=== PATIENT | female | born 2000 | race Caucasian/White ===

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

== ENCOUNTER 2020-03-30 15:11 | Emergency (ER) | payer OTHER ==
--- NOTE | 2020-03-30 16:17 | XR ---
EXAMINATION TYPE: XR chest 2V DATE OF EXAM: 03/30/2020 COMPARISON: 12/11/2018 HISTORY: 19-year-old female with cough TECHNIQUE: PA and lateral views FINDINGS: The cardiomediastinal silhouette, aorta, and pulmonary vasculature are within normal limits. Lungs an d pleural spaces are clear. Bilateral nipple bars. IMPRESSION: No acute cardiopulmonary process.
--- NOTE | 2020-03-30 16:35 | ED ---
URI HPI - General Chief Complaint: Upper Respiratory Infection Stated Complaint: Cough/NESHA Time Seen by Provider: 03/30/20 15:44 Source: family Mode of arrival: ambulatory Limitations: no limitations - History of Present Illness Initial Comments: 19-year-old female who denies past medical history presenting today for chief complaint of cough, sore throat. Patient states that she has had a cough and sore throat for the past 1-2 days she states she's felt warm as though she's had a fever. Patient denies any specific sick contacts denies abdominal pain rashes diarrhea. Patient states that she feels short of breath coughing denies shortness breath and absence of coughing. Denies a chest pressure arm pain and jaw pain and leg swelling. Denies SARKAR, neck stiffness, abdominal pain or urinary symptoms. Patient denies additional complaints upon arrival she appears well nontoxic in no acute distress - Related Data Home Medications Medication Instructions Recorded Confirmed FLUoxetine HCL [PROzac] 40 mg PO HS 01/12/16 03/30/20 cloNIDine HCL [Catapres] 0.1 mg PO HS 03/30/20 03/30/20 Previous Rx's Medication Instructions Recorded predniSONE 50 mg PO DAILY 4 Days #4 tab 03/30/20 Allergies Allergy/AdvReac Type Severity Reaction Status Date / Time No Known Allergies Allergy Verified 03/30/20 16:39 Review of Systems ROS Statement: Those systems with pertinent positive or pertinent negative responses have been documented in the HPI. ROS Other: All systems not noted in ROS Statement are negative. Past Medical History Past Medical History: No Reported History History of Any Multi-Drug Resistant Organisms: None Reported Past Surgical History: Ear Surgery Additional Past Surgical History / Comment(s): oral surgery Past Psychological History: ADD/ADHD, Anxiety Smoking Status: Current every day smoker Past Alcohol Use History: Occasional Past Drug Use History: None Reported General Exam - General Exam Comments Initial Comments: General: The patient is awake and alert, in no distress, and does not appear acutely ill. Eye: +3 mm pupils are equal, round and reactive to light, extra-ocular movements are intact. No nystagmus. There is normal conjunctiva bilaterally. No signs of icterus. No photophobia Ears, nose, mouth and throat: There are moist mucous membranes and no oral lesions. Oropharynx was not erythematous there is no tonsillar enlargement exudates or lesions. Uvula midline. Tympanic membranes are not erythematous or is no effusions bulging or retraction. No tenderness to palpation of the mastoid. No anterior cervical lymphadenopathy. Rhinorrhea, clear and bilateral nares. No tripoding, no drooling. Neck: The neck is supple, there is no tenderness or JVD. No nuchal rigidity Cardiovascular: There is a regular rate and rhythm. No murmur, rub or gallop is appreciated. Respiratory: Lungs are clear to auscultation, respirations are non-labored, breath sounds are equal. No wheezes, stridor, rales, or rhonchi. No retr actions or abdominal breathing. Gastrointestinal: Soft, non-distended, non-tender abdomen without masses or organomegaly noted. There is no rebound or guarding present. Bowel sounds are unremarkable. Musculoskeletal: Normal ROM, no tenderness. Strength 5/5. Sensation intact. Radial pulses equal bilaterally 2+. Neurological: A&O x 3. CN II-XII intact grossly, There are no obvious motor or sensory deficits. Coordination appears grossly intact. Speech appears normal, no muffling. Skin: Skin is warm and dry and no rashes or lesions are noted. No extremity edema Psychiatric: Cooperative Limitations: no limitations Course Vital Signs 03/30/20 03/30/20 15:32 16:37 Temperature 98.5 F 97.8 F Pulse Rate 99 78 Respiratory 18 16 Rate Blood Pressure 125/72 126/89 O2 Sat by Pulse 97 100 Oximetry Medical Decision Making - Medical Decision Making Nontoxic-appearing 19-year-old female presenting for cough, sore throat. Lungs clear. CXR clear VS withina cceptable limits. Patient appears nontoxic. Strep (- ) Covid pending. Uvula midline no stridor tripoding drooling or overt signs convicing of a strep pharyngitis. Patient most likely has viral syndrome recommend pcp f/u. Staying home from work and awating covid results. Patient is agreeable to care plan and discharge at this time. Discussed case with Dr. Juan - Lab Data Lab Results 03/30/20 Range/Units 15:51 Group A Strep Rapid Negative (Negative) Disposition Clinical Impression: Upper respiratory infection, Cough, Sore throat, Nasal congestion Disposition: HOME SELF-CARE Condition: Good Instructions (If sedation given, give patient instructions): Upper Respiratory Infection (ED) Additional Instructions: Please use medication as discussed. Please follow-up with family doctor in the next 2 days. Please return to emergency room if the symptoms increase or worsen or for any other concerns. Prescriptions: predniSONE 50 mg PO DAILY 4 Days #4 tab Is patient prescribed a controlled substance at d/c from ED?: No Referrals: Kaylee Smith MD [Primary Care Provider] - 1-2 days Time of Disposition: 16:34
[2020-03-30 16:44] VITALS: BP 126/89; PULSE 78; RESP 16; TEMP 97.8
== END 2020-03-30 16:41 | disposition home or self-care (01) ==
LOC: EC 15:11
DX: J06.9 Acute upper respiratory infection, unspecified (principal); J02.9 Acute pharyngitis, unspecified; Z20.828 Contact with and (suspected) exposure to other viral communicable diseases; F90.9 Attention-deficit hyperactivity disorder, unspecified type; F41.9 Anxiety disorder, unspecified; F17.200 Nicotine dependence, unspecified, uncomplicated; Z79.899 Other long term (current) drug therapy
CPT/HCPCS: 87081; 87430; 71046; 99283; U0003

== ENCOUNTER → 2020-04-17 | Outpatient (CLI) | payer OTHER ==
--- NOTE | 2020-04-17 07:59 | US ---
EXAMINATION TYPE: US pelvis complete transvag DATE OF EXAM: 04/17/2020 COMPARISON: NONE CLINICAL HISTORY: E28.2 PCO. PCOS TECHNIQUE: Transvaginal (TV) and Transabdominal (TA) . Transabdominal sonographic images of the pel vis were acquired. Transvaginal sonographic images were medically necessary to better assess the fol lowing anatomy: Ovaries EXAM MEASUREMENTS: Uterus: 10.0 x 5.4 x 6.7 cm Endometrial Stripe: .8 cm Right Ovary: 2.6 x 2.4 x 1.8 cm Left Ovary: 3.6 x 2.2 x 2.4 cm 1. Uterus: Retroverted wnl 2. Endometrium: wnl 3. Right Ovary: Follicles seen 4. Left Ovary: Follicles seen largest 1.5 x 1.1 x 1.4 cm 5. Bilateral Adnexa: wnl 6. Posterior cul-de-sac: wnl IMPRESSION: 1. No acute process. Dominant follicle or small cyst ovary measuring 1.56
== END | disposition home or self-care (01) ==
LOC: RADUSWWP 07:25
PROVIDERS: ATTEND Internal Medicine
DX: N83.209 Unspecified ovarian cyst, unspecified side (principal)
CPT/HCPCS: 76830; 76856

== ENCOUNTER 2020-05-16 20:29 | Emergency (ER) | payer OTHER ==
[2020-05-16 20:40] VITALS: RESP 16; TEMP 99.4
--- NOTE | 2020-05-16 21:49 | XR ---
EXAMINATION TYPE: XR chest 2V DATE OF EXAM: 05/16/2020 COMPARISON: 03/30/2020 HISTORY: Pain TECHNIQUE: 2 views FINDINGS: Heart and mediastinum are normal. Lungs are clear. Diaphragm is normal. Bony thorax appears normal. There are chest leads. IMPRESSION: Normal chest. Normal heart. No change.
--- NOTE | 2020-05-16 22:06 | ED ---
Chest Pain HPI - General Source: patient Mode of arrival: wheelchair Limitations: no limitations <Silvestre Gupta - Last Filed: 05/16/20 23:08> <Gege Torres - Last Filed: 05/17/20 13:33> - General Chief Complaint: Chest Pain Stated Complaint: Chest pain Time Seen by Provider: 05/16/20 20:45 - History of Present Illness Initial Comments: Patient is a 19-year-old female with history of anxiety presenting to emergency Department with chief complaint of chest pain. Patient reports this started around 3 PM today and has been intermittent and lasted for about 10-15 minutes each time. Patient reports the pain feels like pressure which is somewhat reminiscent of her anxiety. Patient reports it does have a and occasional radiation to the left shoulder. She denies any associated shortness of breath. States the pain is exacerbated depending on how she lays in bed. States she is a smoker. She denies any coughing, sore throat, otalgia or rhinorrhea. Denies taking medication to alleviate the symptoms. States she has been evaluated multiple times for similar chest pain with no significant findings. Denies that diaphoretic episodes, lightheadedness, dizziness, headaches or neck stiffness. (Silvestre Gupta) - Related Data Home Medications Medication Instructions Recorded Confirmed FLUoxetine HCL [PROzac] 40 mg PO HS 01/12/16 03/30/20 cloNIDine HCL [Catapres] 0.1 mg PO HS 03/30/20 03/30/20 Previous Rx's Medication Instructions Recorded predniSONE 50 mg PO DAILY 4 Days #4 tab 03/30/20 Allergies Allergy/AdvReac Type Severity Reaction Status Date / Time No Known Allergies Allergy Verified 05/16/20 20:40 Review of Systems ROS Other: All systems not noted in ROS Statement are negative. <Silvestre Gupta - Last Filed: 05/16/20 23:08> ROS Other: All systems not noted in ROS Statement are negative. <Gege Torres - Last Filed: 05/17/20 13:33> ROS Statement: Those systems with pertinent positive or pertinent negative responses have been documented in the HPI. Past Medical History Past Medical History: No Reported History History of Any Multi-Drug Resistant Organisms: None Reported Past Surgical History: Ear Surgery Additional Past Surgical History / Comment(s): oral surgery Past Psychological History: ADD/ADHD, Anxiety Smoking Status: Current every day smoker Past Alcohol Use History: None Reported Past Drug Use History: None Reported <Silvestre Gupta - Last Filed: 05/16/20 23:08> General Exam Limitations: no limitations General appearance: alert, in no apparent distress, obese Head exam: Present: atraumatic, normocephalic, normal inspection Eye exam: Present: normal appearance, PERRL, EOMI Pupils: Present: normal accommodation ENT exam: Present: normal exam, normal oropharynx, mucous membranes moist, TM's normal bilaterally, normal external ear exam Neck exam: Present: normal inspection, full ROM. Absent: tenderness Respiratory exam: Present: normal lung sounds bilaterally, chest wall tenderness (Mild reproducible chest pain. No pain in the left shoulder or scapular region.). Absent: respiratory distress, rales Cardiovascular Exam: Present: regular rate, normal rhythm, normal heart sounds Extremities exam: Present: normal inspection, full ROM, normal capillary refill. Absent: tenderness Back exam: Present: normal inspection, full ROM. Absent: tenderness Neurological exam: Present: alert, oriented X3, normal gait Psychiatric exam: Present: normal affect, normal mood Skin exam: Present: warm, dry, intact, normal color <Silvestre Gupta - Last Filed: 05/16/20 23:08> Course Vital Signs 05/16/20 05/16/20 05/16/20 20:38 20:59 22:08 Temperature 99.4 F Pulse Rate 107 H 96 101 H Respiratory 16 16 16 Rate Blood Pressure 125/82 125/86 101/67 O2 Sat by Pulse 98 99 99 Oximetry Chest Pain [facility] - Differential Diagnosis Chest Wall Syndrome <Silvestre Gupta - Last Filed: 05/16/20 23:08> <Gege Torres - Last Filed: 05/17/20 13:33> - [facility] Patient is 19-year-old female presenting to the emergency department with chief complaint of chest pain. She does have history of anxiety and this one feels somewhat like that. This appears to be atypical chest pain with atypical features. It seems to more positional in nature because it is exacerbated depending on how she is laying in bed. She is not having shortness of breath. This is not pleuritic chest pain. Patient will follow with her primary care physician. Return prescribed as were thoroughly discussed with patient was understanding and agreeable. Case discussed with physician. (Silvestre Gupta) I was available for consultation in the emergency department. The history and physical exam were done by the midlevel provider. I was consulted for this patients care. I reviewed the case with the midlevel provider and based on their presentation of the patient, I agree with the assessment, medical decision making and plan of care as documented. Patient is perc negative. Denies pleuritic chest pain. No ripping or tearing sensation to her back. Recommend patient follow up for Holter monitoring and an echo of her heart. Chart was dictated using [employer] dictation software. Attempts were made to correct any dictation errors however some typographical errors may persist. Patient was seen during a national state of emergency due to the Covid-19 pandemic. (Gege Torres) Disposition Is patient prescribed a controlled substance at d/c from ED?: No Time of Disposition: 22:06 <Silvestre Gupta - Last Filed: 05/16/20 23:08> <Gege Torres - Last Filed: 05/17/20 13:33> Clinical Impression: Atypical chest pain Disposition: HOME SELF-CARE Condition: Stable Instructions (If sedation given, give patient instructions): Chest Pain (ED) Additional Instructions: Follow-up with her primary care physician. Return to emergency department if symptoms worsen. Referrals: Kaylee Smith MD [Primary Care Provider] - 1-2 days
[2020-05-16 22:09] VITALS: BP 101/67; PULSE 101
== END 2020-05-16 22:13 | disposition home or self-care (01) ==
LOC: EC 20:29
DX: R07.89 Other chest pain (principal); F41.9 Anxiety disorder, unspecified; F90.9 Attention-deficit hyperactivity disorder, unspecified type; F17.200 Nicotine dependence, unspecified, uncomplicated; Z79.899 Other long term (current) drug therapy
CPT/HCPCS: 71046; 81025; 93005; 99285

== ENCOUNTER 2020-05-24 19:01 | Emergency (ER) | payer OTHER ==
[2020-05-24 19:06] VITALS: BP 125/85; RESP 18
[2020-05-24] MEDS ORDERED: FLUCONAZOLE 150 MG TAB PO STA (19:52)
[2020-05-24] MEDS ORDERED: cefTRIAXone 250 MG VIAL IM STA (19:53)
--- NOTE | 2020-05-24 19:53 | ED ---
Female Urogenital HPI - General Chief complaint: Urogenital Stated complaint: Female Time Seen by Provider: 05/24/20 19:12 Source: patient Mode of arrival: ambulatory Limitations: no limitations - History of Present Illness Initial comments: 19-year-old female presenting for white discharge vaginal irritation. She states her external vagina is irritated and red. She states she is thick white discharge. Patient is concerned of [place] infection or sexually transmitted disease. Patient denies she denies abdominal pain fevers dysuria urgency frequency patient has no additional complaints upon arrival she appears well nontoxic in no acute distress accompanied by a friend. - Related Data Home Medications Medication Instructions Recorded Confirmed FLUoxetine HCL [PROzac] 40 mg PO HS 01/11/03/30/20 cloNIDine HCL [Catapres] 0.1 mg PO HS 03/30/20 03/30/20 Previous Rx's Medication Instructions Recorded predniSONE 50 mg PO DAILY 4 Days #4 tab 03/30/20 Azithromycin [Zithromax] 1,000 mg PO ONCE 1 Days #2 tab 05/24/20 Allergies Allergy/AdvReac Type Severity Reaction Status Date / Time No Known Allergies Allergy Verified 05/16/20 20:40 Review of Systems ROS Statement: Those systems with pertinent positive or pertinent negative responses have been documented in the HPI. ROS Other: All systems not noted in ROS Statement are negative. Past Medical History Past Medical History: No Reported History History of Any Multi-Drug Resistant Organisms: None Reported Past Surgical History: Ear Surgery Additional Past Surgical History / Comment(s): oral surgery Past Psychological History: ADD/ADHD, Anxiety Smoking Status: Current every day smoker Past Alcohol Use History: None Reported Past Drug Use History: None Reported General Exam - General Exam Comments Initial Comments: General: The patient is awake and alert, in no distress, and does not appear acutely ill. Eye: Pupils are equal, round and reactive to light, extra-ocular movements are intact. No nystagmus. There is normal conjunctiva bilaterally. No signs of icterus. Cardiovascular: There is a regular rate and rhythm. No murmur, rub or gallop is appreciated. Respiratory: Lungs are clear to auscultation, respirations are non-labored, breath sounds are equal. No wheezes, stridor, rales, or rhonchi. Gastrointestinal: Soft, non-distended, non-tender abdomen without masses or organomegaly noted. There is no rebound or guarding present. : No adnexal tenderness, no cervical motion tenderness, these is thick chunky d/c in vault, mild amount, some external redness near itroitus Musculoskeletal: Normal ROM, no tenderness. Strength 5/5. Sensation intact. Pulses equal bilaterally 2+. Neurological: A&O x 3. CN II-XII intact grossly, There are no obvious motor or sensory deficits. Coordination appears grossly intact. Speech is normal. Skin: Skin is warm and dry and no rashes or lesions are noted. Psychiatric: Cooperative, appropriate mood & affect, normal judgment. Limitations: no limitations Course Vital Signs 05/24/20 05/24/20 19:03 20:14 Temperature 98.7 F 98.6 F Pulse Rate 103 H 96 Respiratory 18 Rate Blood Pressure 125/85 O2 Sat by Pulse 100 Oximetry Medical Decision Making - Medical Decision Making cc vaginal d/c hx and exam concerning for jocelyne. will also treat for STI between today and tomorrow. no abdominal pain. no fevers. patient nontoxic. no exam f inding suggestive of PID. Patient will be discharged with OB and PCP f/u. Dr> lorene agreeable to care plan. - Lab Data Lab Results 05/24/20 05/24/20 05/24/20 Range/Units 19:38 19:38 20:01 Urine Color Yellow Urine Appearance Clear (Clear) Urine pH 5.5 (5.0-8.0) Ur Specific [place] 1.020 (1.001-1.035) Urine Protein Negative (Negative) Urine Glucose (UA) Negative (Negative) Urine Ketones Negative (Negative) Urine Blood Trace H (Negative) Urine Nitrite Negative (Negative) Urine Bilirubin Negative (Negative) Urine Urobilinogen <2.0 (<2.0) mg/dL Ur Leukocyte Esterase Small H (Negative) Urine RBC 2 (0-5) /hpf Urine WBC 1 (0-5) /hpf Ur Squamous Epith Cells 2 (0-4) /hpf Urine Mucus Rare H (None) /hpf Urine HCG, Qual Not Detected (Not Detectd) Trichomonas Ag (Rapid) Negative (Negative) Disposition Clinical Impression: Jocelyne vaginitis Disposition: HOME SELF-CARE Condition: Good Instructions (If sedation given, give patient instructions): Yeast Infection (ED), Vaginitis (ED) Additional Instructions: Please use medication as discussed. Please follow-up with family doctor in the next 2 days. Please return to emergency room if the symptoms increase or worsen or for any other concerns. Prescriptions: Azithromycin [Zithromax] 1,000 mg PO ONCE 1 Days #2 tab Is patient prescribed a controlled substance at d/c from ED?: No Referrals: Kaylee Smith MD [Primary Care Provider] - 1-2 days Time of Disposition: 19:52
[2020-05-24 20:06] LABS: Appearance,Urine Clear (Clear); Bilirubin,Urine Negative (Negative); Blood,Urine Trace (Negative); Color,Urine Yellow; Glucose,Urine (UA) Negative (Negative); Ketones,Urine Negative (Negative); Leukocyte Esterase,Urine Small (Negative); Mucus,Urine Rare /hpf; Nitrite,Urine Negative (Negative); PH, Urine 5.5 (5.0-8.0); Protein,Urine Negative (Negative); RBC,Urine 2 /hpf (0-5); Squamous Epithelial Cell,Urine 2 /hpf (0-4); Urobilinogen,Urine <2.0 mg/dL (<2.0); WBC,Urine 1 /hpf (0-5)
[2020-05-24 20:17] VITALS: PULSE 96; TEMP 98.6
[2020-05-26 07:15] LABS: C. trachomatis,PCR Negative (Neg,Equiv); Chlamydia trachomatis Source Vagina; N. gonorrhoeae,PCR Negative (Neg,Equiv); Neisseria Source Vagina
== END 2020-05-24 20:16 | disposition home or self-care (01) ==
LOC: EC 19:01
DX: B37.3 Candidiasis of vulva and vagina (principal); F41.9 Anxiety disorder, unspecified; F17.200 Nicotine dependence, unspecified, uncomplicated; Z79.899 Other long term (current) drug therapy
CPT/HCPCS: 81001; 81025; 87808; 87491; 87591; 87070; 99283; 96372; J0696

== ENCOUNTER 2020-06-23 14:00 | Emergency (ER) | payer OTHER ==
[2020-06-23 14:11] VITALS: BP 120/63; PULSE 88; RESP 18; TEMP 98.6
[2020-06-23] MEDS ORDERED: ONDANSETRON ODT 4 MG TAB PO STA (14:16)
--- NOTE | 2020-06-23 14:20 | ED ---
General Adult HPI - General Chief complaint: Abdominal Pain Stated complaint: abd pain/vomiting Time Seen by Provider: 06/23/20 14:04 Source: patient Mode of arrival: ambulatory Limitations: no limitations - History of Present Illness Initial comments: 20-year-old female patient presents to the emergency department today for evaluation of nausea. Patient states she's been feeling nauseated especially the mornings over the last couple of days. States that this morning she had a little bit of "spit up", but states it was not a full episode of vomiting. She states she has really felt like eating but has been able to keep down food when she tries. She denies any constipation or diarrhea. States she is having mild discomfort in the mid epigastric region. Denies any radiation through to her back. Denies history of abdominal surgery. States there is a chance she could be . Denies taking test. Denies any hematuria, dysuria, urinary frequency, urinary urgency. Denies any abnormal vaginal bleeding or discharge. Patient denies any recent rash, fever, chills, cough, shortness of breath, chest pain, back pain, numbness, tingling, dizziness, weakness, headache, visual changes, or any other complaints. - Related Data Home Medications Medication Instructions Recorded Confirmed FLUoxetine HCL [PROzac] 40 mg PO HS 01/12/16 03/30/20 cloNIDine HCL [Catapres] 0.1 mg PO HS 03/30/20 03/30/20 Previous Rx's Medication Instructions Recorded predniSONE 50 mg PO DAILY 4 Days #4 tab 03/30/20 Azithromycin [Zithromax] 1,000 mg PO ONCE 1 Days #2 tab 05/24/20 Ondansetron [Zofran ODT] 4 mg PO Q8HR PRN #10 tab 06/23/20 Allergies Allergy/AdvReac Type Severity Reaction Status Date / Time No Known Allergies Allergy Verified 06/23/20 14:11 Review of Systems ROS Statement: Those systems with pertinent positive or pertinent negative responses have been documented in the HPI. ROS Other: All systems not noted in ROS Statement are negative. Past Medical History Past Medical History: No Reported History History of Any Multi-Drug Resistant Organisms: None Reported Past Surgical History: Ear Surgery Additional Past Surgical History / Comment(s): oral surgery Past Psychological History: ADD/ADHD, Anxiety Smoking Status: Current every day smoker Past Alcohol Use History: None Reported Past Drug Use History: None Reported General Exam Limitations: no limitations General appearance: alert, in no apparent distress, other (This is a well- developed, well-nourished adult female patient in no acute distress. Vital signs upon presentation are temperature 98.6F, pulse 88, respirations 18, blood pressure 120/63, pulse ox 98% on room air.) ENT exam: Present: normal exam, normal oropharynx, mucous membranes moist Respiratory exam: Present: normal lung sounds bilaterally. Absent: respiratory distress, wheezes, rales, rhonchi, stridor Cardiovascular Exam: Present: regular rate, normal rhythm, normal heart sounds. Absent: systolic murmur, diastolic murmur, rubs, gallop, clicks GI/Abdominal exam: Present: soft, normal bowel sounds. Absent: distended, tenderness, guarding, rebound, rigid Neurological exam: Present: alert, oriented X3, CN II-XII intact Psychiatric exam: Present: normal affect, normal mood Skin exam: Present: warm, dry, intact, normal color. Absent: rash Course Vital Signs 06/23/20 14:05 Temperature 98.6 F Pulse Rate 88 Respiratory 18 Rate Blood Pressure 120/63 O2 Sat by Pulse 98 Oximetry Medical Decision Making - Medical Decision Making 20-year-old female patient presents to the emergency department today for evaluation of nausea. Patient states she's had symptoms over the last couple of days, did have a little bit of spit up this morning. Decreased appetite. Physical examination is unremarkable. Abdomen is soft and nontender. Urinalysi s was obtained and showed no signs of infection. test was negative. We will give dose of Zofran in the emergency department sent a prescription to her pharmacy. She is instructed to follow up with her primary care physician for recheck in 1-2 days. Return parameters were discussed in detail. She verbalizes understanding and agrees with this plan. - Lab Data Lab Results 06/23/20 06/23/20 Range/Units 14:19 14:19 Urine Color Yellow Urine Appearance Turbid H (Clear) Urine pH 8.0 (5.0-8.0) Ur Specific [place] 1.014 (1.001-1.035) Urine Protein Negative (Negative) Urine Glucose (UA) Negative (Negative) Urine Ketones Negative (Negative) Urine Blood Negative (Negative) Urine Nitrite Negative (Negative) Urine Bilirubin Negative (Negative) Urine Urobilinogen <2.0 (<2.0) mg/dL Ur Leukocyte Esterase Negative (Negative) Ur Squamous Epith Cells 4 (0-4) /hpf Amorphous Sediment Occasional H (None) /hpf Urine Mucus Rare H (None) /hpf Urine HCG, Qual Not Detected (Not Detectd) Disposition Clinical Impression: Nausea Disposition: HOME SELF-CARE Condition: Good Instructions (If sedation given, give patient instructions): Acute Nausea and Vomiting (ED) Additional Instructions: Take medications as directed. Start with clear liquid diet and advance as tolerated. Follow-up with your primary care physician for recheck in 1-2 days. Return to the emergency department immediately for any new, worsening, or concerning symptoms. Prescriptions: Ondansetron [Zofran ODT] 4 mg PO Q8HR PRN #10 tab PRN Reason: Nausea Is patient prescribed a controlled substance at d/c from ED?: No Referrals: Kaylee Smith MD [Primary Care Provider] - 1-2 days Time of Disposition: 14:55
[2020-06-23 14:53] LABS: Amorphous Sediment,Urine Occasional /hpf; Appearance,Urine Turbid (Clear); Bilirubin,Urine Negative (Negative); Blood,Urine Negative (Negative); Color,Urine Yellow; Glucose,Urine (UA) Negative (Negative); Ketones,Urine Negative (Negative); Leukocyte Esterase,Urine Negative (Negative); Mucus,Urine Rare /hpf; Nitrite,Urine Negative (Negative); Protein,Urine Negative (Negative); Specific Gravity,Urine 1.014 (1.001-1.035); Squamous Epithelial Cell,Urine 4 /hpf (0-4); Urobilinogen,Urine <2.0 mg/dL (<2.0)
== END 2020-06-23 15:07 | disposition home or self-care (01) ==
LOC: EC 14:00
DX: R11.0 Nausea (principal); F17.200 Nicotine dependence, unspecified, uncomplicated; F41.9 Anxiety disorder, unspecified; F90.9 Attention-deficit hyperactivity disorder, unspecified type; Z79.899 Other long term (current) drug therapy
CPT/HCPCS: 81001; 81025; 99284

== ENCOUNTER 2020-09-06 00:50 | Emergency (ER) | payer OTHER ==
[2020-09-06 01:01] VITALS: TEMP 98.9
--- NOTE | 2020-09-06 01:41 | ED ---
Abdominal Pain HPI - General Chief Complaint: Abdominal Pain Stated Complaint: Pelvic Pain, 11 weeks preg Time Seen by Provider: 09/06/20 01:05 Source: patient Mode of arrival: ambulatory Limitations: no limitations - History of Present Illness Initial Comments: Patient is a 20-year-old female presenting to the emergency Department with complaints of lower left quadrant abdominal pain 3 days. Patient is currently 11 weeks , . Her OFFICE ADMINISTRATION INSTRUCTOR is Dr. Marsh out of [facility]. Patient states she was seen at [facility] 2 nights ago for same complaint, she was diagnosed with diverticulitis based solely on labs. Patient denies history of diverticulitis. She states the pain is worse with movement or intercourse. She denies any vaginal bleeding and no vaginal pain. She did have a confirmed IUP on August 12 through ultrasound. She denies any fever, chills, nausea or vomiting, no chest pain or shortness of breath. Patient states she has been able to eat and drink as normal. She denies history of abdominal surgeries. She has no further complaints at this time. Upon arrival to the ER, she is slightly tachycardia 114, otherwise vitals are normal. - Related Data Home Medications Medication Instructions Recorded Confirmed FLUoxetine HCL [PROzac] 40 mg PO HS 01/12/16 03/30/20 cloNIDine HCL [Catapres] 0.1 mg PO HS 03/30/20 03/30/20 Previous Rx's Medication Instructions Recorded predniSONE 50 mg PO DAILY 4 Days #4 tab 03/30/20 Azithromycin [Zithromax] 1,000 mg PO ONCE 1 Days #2 tab 05/24/20 Ondansetron [Zofran ODT] 4 mg PO Q8HR PRN #10 tab 06/23/20 Allergies Allergy/AdvReac Type Severity Reaction Status Date / Time No Known Allergies Allergy Verified 09/06/20 01:01 Review of Systems ROS Statement: Those systems with pertinent positive or pertinent negative responses have been documented in the HPI. ROS Other: All systems not noted in ROS Statement are negative. Past Medical History Past Medical History: No Reported History History of Any Multi-Drug Resistant Organisms: None Reported Past Surgical History: Ear Surgery Additional Past Surgical History / Comment(s): oral surgery Past Psychological History: ADD/ADHD, Anxiety Smoking Status: Current every day smoker Past Alcohol Use History: None Reported Past Drug Use History: None Reported General Exam - General Exam Comments Initial Comments: GENERAL: Patient is well-developed and well-nourished. Patient is nontoxic and in no acute distress. HEAD: Atraumatic, normocephalic. EYES: Pupils equal round and reactive to light, extraocular movements intact, sclera anicteric, conjunctiva are normal. Eyelids were unremarkable. ENT: TMs normal, nares patent, oropharynx clear without exudates. Moist mucous membranes. NECK: Normal range of motion, supple without lymphadenopathy or JVD. LUNGS: Unlabored respirations. Breath sounds clear to auscultation bilaterally and equal. No wheezes rales or rhonchi. HEART: Regular rate and rhythm without murmurs, rubs or gallops. ABDOMEN: Left lower quadrant tenderness with palpation, Soft, normoactive bowel sounds. No guarding, no rebound. No masses appreciated. : Deferred MUSCULOSKELETAL: Normal extremities with adequate strength and normal range of motion, no pitting or edema. No clubbing or cyanosis. NEUROLOGICAL: Patient is alert and oriented x 3. Motor and sensory are also intact. Cranial nerves II through XII grossly intact. Symmetrical smile. Normal speech, normal gait. PSYCH: Normal mood, normal affect. SKIN: Warm, Dry, normal turgor, no rashes or lesions noted. Limitations: no limitations Course Vital Signs 09/06/20 00:57 Temperature 98.9 F Pulse Rate 114 H Respiratory 16 Rate Blood Pressure 129/75 O2 Sat by Pulse 97 Oximetry Medical Decision Making - Medical Decision Making Patient is a 20-year-old female here for left lower quadrant pain for the last 3 days. She is 11 weeks , . Her OFFICE ADMINISTRATION INSTRUCTOR is Dr. Marsh out [facility]. She was evaluated at [facility] 2 days ago for same complaint. Her exam today reveals some mild left lower quadrant tenderness, no other abnormalities. There is been no vaginal bleeding. Lab work is stable, urine shows no evidence of infection. I did do a US that shows a single viable IUP with size consistent of 11 weeks, heart rate was 168, no other abnormality seen. I discussed these findings with the patient. I do think this is most likely related rather than diverticulitis. At this recommended Tylenol, she can follow up with her OFFICE ADMINISTRATION INSTRUCTOR. Patient is in agreement with this plan of care. Return parameters were discussed with the patient she verbalized understanding. Case discussed Dr. Lord. - Lab Data Result diagrams: 09/06/20 01:48 09/06/20 01:48 Lab Results 09/06/20 09/06/20 09/06/20 Range/Units 01:46 01:48 01:48 WBC 13.0 H (3.8-10.6) k/uL RBC 4.49 (3.80-5.40) m/uL Hgb 13.8 (11.4-16.0) gm/dL Hct 39.9 (34.0-46.0) % MCV 88.9 (80.0-100.0) fL MCH 30.7 (25.0-35.0) pg MCHC 34.5 (31.0-37.0) g/dL RDW 12.4 (11.5-15.5) % Plt Count 282 (150-450) k/uL MPV 7.1 Neutrophils % 71 % Lymphocytes % 21 % Monocytes % 5 % Eosinophils % 2 % Basophils % 1 % Neutrophils # 9.2 H (1.3-7.7) k/uL Lymphocytes # 2.8 (1.0-4.8) k/uL Monocytes # 0.6 (0-1.0) k/uL Eosinophils # 0.2 (0-0.7) k/uL Basophils # 0.1 (0-0.2) k/uL Sodium 137 (137-145) mmol/L Potassium 4.1 (3.5-5.1) mmol/L Chloride 106 (98-107) mmol/L Carbon Dioxide 26 (22-30) mmol/L Anion Gap 5 mmol/L BUN 8 (7-17) mg/dL Creatinine 0.55 (0.52-1.04) mg/dL Est GFR (CKD-EPI)AfAm >90 (>60 ml/min/1.73 sqM) Est GFR (CKD-EPI)NonAf >90 (>60 ml/min/1.73 sqM) Glucose 79 (74-99) mg/dL Plasma Lactic Acid Lee (0.7-2.0) mmol/L Calcium 9.5 (8.4-10.2) mg/dL Total Bilirubin 0.3 (0.2-1.3) mg/dL AST 32 (14-36) U/L ALT 35 H (4-34) U/L Alkaline Phosphatase 53 (38-126) U/L Total Protein 6.9 (6.3-8.2) g/dL Albumin 3.9 (3.5-5.0) g/dL Lipase 126 (23-300) U/L Urine Color Light Yellow Urine Appearance Clear (Clear) Urine pH 7.0 (5.0-8.0) Ur Specific [place] 1.015 (1.001-1.035) Urine Protein Negative (Negative) Urine Glucose (UA) Negative (Negative) Urine Ketones Negative (Negative) Urine Blood Negative (Negative) Urine Nitrite Negative (Negative) Urine Bilirubin Negative (Negative) Urine Urobilinogen <2.0 (<2.0) mg/dL Ur Leukocyte Esterase Negative (Negative) 09/06/20 Range/Units 01:48 WBC (3.8-10.6) k/uL RBC (3.80-5.40) m/uL Hgb (11.4-16.0) gm/dL Hct (34.0-46.0) % MCV (80.0-100.0) fL MCH (25.0-35.0) pg MCHC (31.0-37.0) g/dL RDW (11.5-15.5) % Plt Count (150-450) k/uL MPV Neutrophils % % Lymphocytes % % Monocytes % % Eosinophils % % Basophils % % Neutrophils # (1.3-7.7) k/uL Lymphocytes # (1.0-4.8) k/uL Monocytes # (0-1.0) k/uL Eosinophils # (0-0.7) k/uL Basophils # (0-0.2) k/uL Sodium (137-145) mmol/L Potassium (3.5-5.1) mmol/L Chloride (98-107) mmol/L Carbon Dioxide (22-30) mmol/L Anion Gap mmol/L BUN (7-17) mg/dL Creatinine (0.52-1.04) mg/dL Est GFR (CKD-EPI)AfAm (>60 ml/min/1.73 sqM) Est GFR (CKD-EPI)NonAf (>60 ml/min/1.73 sqM) Glucose (74-99) mg/dL Plasma Lactic Acid Lee 1.0 (0.7-2.0) mmol/L Calcium (8.4-10.2) mg/dL Total Bilirubin (0.2-1.3) mg/dL AST (14-36) U/L ALT (4-34) U/L Alkaline Phosphatase (38-126) U/L Total Protein (6.3-8.2) g/dL Albumin (3.5-5.0) g/dL Lipase (23-300) U/L Urine Color Urine Appearance (Clear) Urine pH (5.0-8.0) Ur Specific [place] (1.001-1.035) Urine Protein (Negative) Urine Glucose (UA) (Negative) Urine Ketones (Negative) Urine Blood (Negative) Urine Nitrite (Negative) Urine Bilirubin (Negative) Urine Urobilinogen (<2.0) mg/dL Ur Leukocyte Esterase (Negative) Disposition Clinical Impression: Abdominal pain during Disposition: HOME SELF-CARE Condition: Stable Instructions (If sedation given, give patient instructions): Abdominal Pain in (ED) Additional Instructions: Please return to the Emergency Department if symptoms worsen or any other concerns. Workup today is normal, US is normal. Follow-up with your OBGYN. May take tylenol for pain. Is patient prescribed a controlled substance at d/c from ED?: No Referrals: Kaylee Smith MD [Primary Care Provider] - 1-2 days
[2020-09-06 02:15] LABS: Basophils # (A) 0.1 k/uL (0-0.2); Basophils % (A) 1 %; Eosinophils # (A) 0.2 k/uL (0-0.7); Eosinophils % (A) 2 %; HCT 39.9 % (34.0-46.0); HGB 13.8 gm/dL (11.4-16.0); Lymphocytes # (A) 2.8 k/uL (1.0-4.8); Lymphocytes % (A) 21 %; MCH 30.7 pg (25.0-35.0); MCHC 34.5 g/dL (31.0-37.0); MCV 88.9 fL (80.0-100.0); Mean Platelet Volume 7.1; Monocytes # (A) 0.6 k/uL (0-1.0); Monocytes % (A) 5 %; Neutrophils # (A) 9.2 k/uL (1.3-7.7); Neutrophils % (A) 71 %; Platelet Count 282 k/uL (150-450); RBC 4.49 m/uL (3.80-5.40); RDW 12.4 % (11.5-15.5)
[2020-09-06 02:17] LABS: Appearance,Urine Clear (Clear); Bilirubin,Urine Negative (Negative); Blood,Urine Negative (Negative); Color,Urine Light Yellow; Glucose,Urine (UA) Negative (Negative); Ketones,Urine Negative (Negative); Leukocyte Esterase,Urine Negative (Negative); Nitrite,Urine Negative (Negative); Protein,Urine Negative (Negative); Specific Gravity,Urine 1.015 (1.001-1.035); Urobilinogen,Urine <2.0 mg/dL (<2.0)
[2020-09-06 02:32] LABS: ALT 35 U/L (4-34); AST 32 U/L (14-36); African American GFR (CKD) >90 (>60 ml/min/1.73 sqM); Albumin 3.9 g/dL (3.5-5.0); Alkaline Phosphatase 53 U/L (38-126); Anion Gap 5 mmol/L; Blood Urea Nitrogen 8 mg/dL (7-17); Calcium 9.5 mg/dL (8.4-10.2); Carbon Dioxide 26 mmol/L (22-30); Chloride 106 mmol/L (98-107); Glucose 79 mg/dL (74-99); Lipase 126 U/L (23-300); Non-African American GFR(CKD) >90 (>60 ml/min/1.73 sqM); Potassium 4.1 mmol/L (3.5-5.1); Sodium 137 mmol/L (137-145); Total Bilirubin 0.3 mg/dL (0.2-1.3); Total Protein 6.9 g/dL (6.3-8.2)
--- NOTE | 2020-09-06 02:36 | US ---
EXAM: US First Trimester , Transabdominal CLINICAL HISTORY: ITS.REASON US Reason: LLQ pain, 11weeks , no bleeding TECHNIQUE: Real-time transabdominal obstetrical ultrasound of the maternal pelvis and a first trimester with image documentation. COMPARISON: No relevant prior studies available. FINDINGS: Gestation: There is a single intrauterine gestational sac. The pole crown-rump length measures 4.54 cm consistent with 11 weeks 2 days gestation. The estimated gestational age by ultrasound is 11 weeks 2 days. heart rate 168 bpm. JOCELINE: The estimated date of delivery is March 26, 2021. Placenta/amniotic fluid: Cannot be adequately evaluated due to the early gestational age. Uterus/cervix: The uterus measures 11.1 x 6.1 x 8.4 cm, 297 mL. No myometrial mass. Ovaries: The right ovary measures 3.3 x 1.3 x 1.7 cm, 3.9 mL with normal Doppler blood flow. The left ovary measures 3.1 x 2 x 2.2 cm, 7 mL with normal Doppler blood flow. No mass. Free fluid: No free fluid. IMPRESSION: Single, viable intrauterine with size consistent with 11 weeks 2 days gestation. The estimated date of delivery is March 26, 2021
[2020-09-06 03:13] VITALS: BP 119/72; PULSE 105; RESP 18
== END 2020-09-06 03:09 | disposition home or self-care (01) ==
LOC: EC 00:50
DX: O26.891 Other specified pregnancy related conditions, first trimester (principal); R10.814 Left lower quadrant abdominal tenderness; R10.32 Left lower quadrant pain; O99.341 Other mental disorders complicating pregnancy, first trimester; F41.9 Anxiety disorder, unspecified; F90.9 Attention-deficit hyperactivity disorder, unspecified type; O99.331 Smoking (tobacco) complicating pregnancy, first trimester; F17.200 Nicotine dependence, unspecified, uncomplicated; Z3A.11 11 weeks gestation of pregnancy; Z79.899 Other long term (current) drug therapy
CPT/HCPCS: 36415; 76801; 80053; 81003; 83605; 83690; 85025; 99284

== ENCOUNTER 2020-10-02 19:50 | Emergency (ER) | payer OTHER ==
[2020-10-02 20:02] VITALS: RESP 18
[2020-10-02] MEDS ORDERED: SODIUM CHLORIDE 0.9% 1,000 ML IV STA (20:10)
--- NOTE | 2020-10-02 20:10 | ED ---
Nausea/Vomiting/Diarrhea HPI - General Chief complaint: Nausea/Vomiting/Diarrhea Stated complaint: dizziness, 15 wks preg. Time Seen by Provider: 10/02/20 20:09 Source: patient Mode of arrival: ambulatory Limitations: no limitations - History of Present Illness Initial comments: 20-year-old female, , 15 week presents emergency Department with chief complaint of nausea or vomiting diarrhea. Patient reports symptoms began 3 days ago after she ate sausages that would give to her by her mother. the sausages were frozen for about 8-10 months. Patient reports after eating them, she developed her symptoms. She'll reports 1 day of nonbilious and nonbloody vomiting but the nausea still persistent. States the diarrhea is continuous. She denies any abdominal pain, chest pain or shortness of breath. States today she got out of bed, felt slightly dizzy where the room is spinning around her. She denies any lightheadedness, blurry vision, one-sided weakness or paresthesias. Denies taking medication to the symptoms. States her OB is Dr. Marsh. She denies any vaginal bleeding,, discharge, itching or foul smell. Denies increased urgency frequency or dysuria. She denies hematuria, hematochezia or melena. - Related Data Home Medications Medication Instructions Recorded Confirmed Uzg-Mwpa-Cmdau Acid 1 cap PO HS 10/02/20 10/02/20 [-U Capsule (formulary)] Sertraline [Zoloft] 50 mg PO HS 10/02/20 10/02/20 Allergies Allergy/AdvReac Type Severity Reaction Status Date / Time No Known Allergies Allergy Verified 10/02/20 21:19 Review of Systems ROS Statement: Those systems with pertinent positive or pertinent negative responses have been documented in the HPI. ROS Other: All systems not noted in ROS Statement are negative. Past Medical History Past Medical History: No Reported History History of Any Multi-Drug Resistant Organisms: None Reported Past Surgical History: Ear Surgery Additional Past Surgical History / Comment(s): oral surgery Past Psychological History: ADD/ADHD, Anxiety Smoking Status: Current every day smoker Past Alcohol Use History: None Reported Past Drug Use History: None Reported General Exam Limitations: no limitations General appearance: alert, in no apparent distress, obese Head exam: Present: atraumatic, normocephalic, normal inspection Eye exam: Present: normal appearance, PERRL, EOMI Pupils: Present: normal accommodation ENT exam: Present: normal exam, normal oropharynx, mucous membranes moist, TM's normal bilaterally, normal external ear exam Neck exam: Present: normal inspection, full ROM. Absent: tenderness Respiratory exam: Present: normal lung sounds bilaterally. Absent: respiratory distress, wheezes, rales Cardiovascular Exam: Present: regular rate, normal rhythm, normal heart sounds GI/Abdominal exam: Present: soft. Absent: distended, tenderness, guarding, rebound, rigid Extremities exam: Present: normal inspection, full ROM, normal capillary refill. Absent: tenderness, pedal edema, joint swelling Back exam: Present: normal inspection, full ROM. Absent: tenderness, CVA tenderness (R), CVA tenderness (L) Neurological exam: Present: alert, oriented X3, normal gait Psychiatric exam: Present: normal affect, normal mood Skin exam: Present: warm, dry, intact, normal color Course Vital Signs 10/02/20 10/02/20 19:59 22:01 Temperature 99.4 F 98.7 F Pulse Rate 120 H 95 Respiratory 18 18 Rate Blood Pressure 133/66 114/86 O2 Sat by Pulse 97 99 Oximetry Medical Decision Making - Medical Decision Making 20-year-old female, 15 weeks , presenting to emergency Department with chief complaint nausea vomiting diarrhea. On physical examination she does not have any abdominal tenderness. I suspect patient developed gastroneuritis after eating sausages 3 days ago. Her symptoms all seem to have started after this event. Patient was initially tachycardic with stable blood pressure. I suspect this is secondary to the fluid loss from all the vomiting and diarrhea. Patient was given Reglan, Benadryl and IV fluids. On reevaluation, patient reports significant improvement in symptoms. CBC shows leukocytosis of 12.7 K which I suspect is secondary to the and the vomiting. UA is unremarkable. HCG 50 7K which is appropriate for her gestational age of 15 weeks. Ultrasound confirmed an intrauterine . Patient will be discharged and advised to drink plenty of fluids. Return parameters were thoroughly discussed the patient was understanding and agreeable. Case discussed with physician. - Lab Data Result diagrams: 10/02/20 20:24 10/02/20 20:24 Lab Results 10/02/20 10/02/20 10/02/20 Range/Units 20:24 20:24 20:24 WBC 12.7 H (3.8-10.6) k/uL RBC 4.23 (3.80-5.40) m/uL Hgb 12.9 (11.4-16.0) gm/dL Hct 36.7 (34.0-46.0) % MCV 86.6 (80.0-100.0) fL MCH 30.6 (25.0-35.0) pg MCHC 35.3 (31.0-37.0) g/dL RDW 12.7 (11.5-15.5) % Plt Count 247 (150-450) k/uL MPV 7.6 Neutrophils % 76 % Lymphocytes % 17 % Monocytes % 4 % Eosinophils % 2 % Basophils % 1 % Neutrophils # 9.7 H (1.3-7.7) k/uL Lymphocytes # 2.1 (1.0-4.8) k/uL Monocytes # 0.5 (0-1.0) k/uL Eosinophils # 0.3 (0-0.7) k/uL Basophils # 0.1 (0-0.2) k/uL Sodium 138 (137-145) mmol/L Potassium 3.7 (3.5-5.1) mmol/L Chloride 109 H (98-107) mmol/L Carbon Dioxide 22 (22-30) mmol/L Anion Gap 7 mmol/L BUN 9 (7-17) mg/dL Creatinine 0.56 (0.52-1.04) mg/dL Est GFR (CKD-EPI)AfAm >90 (>60 ml/min/1.73 sqM) Est GFR (CKD-EPI)NonAf >90 (>60 ml/min/1.73 sqM) Glucose 109 H (74-99) mg/dL Calcium 9.3 (8.4-10.2) mg/dL Total Bilirubin 0.3 (0.2-1.3) mg/dL AST 21 (14-36) U/L ALT 22 (4-34) U/L Alkaline Phosphatase 53 (38-126) U/L Total Protein 6.5 (6.3-8.2) g/dL Albumin 3.6 (3.5-5.0) g/dL Lipase 124 (23-300) U/L HCG, Quant 89626.4 mIU/mL Urine Color Urine Appearance (Clear) Urine pH (5.0-8.0) Ur Specific [place] (1.001-1.035) Urine Protein (Negative) Urine Glucose (UA) (Negative) Urine Ketones (Negative) Urine Blood (Negative) Urine Nitrite (Negative) Urine Bilirubin (Negative) Urine Urobilinogen (<2.0) mg/dL Ur Leukocyte Esterase (Negative) Urine HCG, Qual Detected (Not Detectd) 10/02/20 Range/Units 20:24 WBC (3.8-10.6) k/uL RBC (3.80-5.40) m/uL Hgb (11.4-16.0) gm/dL Hct (34.0-46.0) % MCV (80.0-100.0) fL MCH (25.0-35.0) pg MCHC (31.0-37.0) g/dL RDW (11.5-15.5) % Plt Count (150-450) k/uL MPV Neutrophils % % Lymphocytes % % Monocytes % % Eosinophils % % Basophils % % Neutrophils # (1.3-7.7) k/uL Lymphocytes # (1.0-4.8) k/uL Monocytes # (0-1.0) k/uL Eosinophils # (0-0.7) k/uL Basophils # (0-0.2) k/uL Sodium (137-145) mmol/L Potassium (3.5-5.1) mmol/L Chloride (98-107) mmol/L Carbon Dioxide (22-30) mmol/L Anion Gap mmol/L BUN (7-17) mg/dL Creatinine (0.52-1.04) mg/dL Est GFR (CKD-EPI)AfAm (>60 ml/min/1.73 sqM) Est GFR (CKD-EPI)NonAf (>60 ml/min/1.73 sqM) Glucose (74-99) mg/dL Calcium (8.4-10.2) mg/dL Total Bilirubin (0.2-1.3) mg/dL AST (14-36) U/L ALT (4-34) U/L Alkaline Phosphatase (38-126) U/L Total Protein (6.3-8.2) g/dL Albumin (3.5-5.0) g/dL Lipase (23-300) U/L HCG, Quant mIU/mL Urine Color Yellow Urine Appearance Clear (Clear) Urine pH 6.5 (5.0-8.0) Ur Specific [place] 1.015 (1.001-1.035) Urine Protein Negative (Negative) Urine Glucose (UA) Negative (Negative) Urine Ketones Negative (Negative) Urine Blood Negative (Negative) Urine Nitrite Negative (Negative) Urine Bilirubin Negative (Negative) Urine Urobilinogen 2.0 (<2.0) mg/dL Ur Leukocyte Esterase Negative (Negative) Urine HCG, Qual (Not Detectd) Disposition Clinical Impression: Gastroenteritis, Nausea vomiting and diarrhea Disposition: HOME SELF-CARE Condition: Stable Instructions (If sedation given, give patient instructions): Acute Nausea and Vomiting (ED) Additional Instructions: Drink plenty of fluids. Follow with your OB. Return to emergency department if symptoms worsen. Is patient prescribed a controlled substance at d/c from ED?: No Referrals: Kaylee Smith MD [Primary Care Provider] - 1-2 days Time of Disposition: 22:29
[2020-10-02] MEDS ORDERED: diphenhydrAMINE 50 MG/ML 1 ML VIAL IVP STA (20:19)
[2020-10-02] MEDS ORDERED: METOCLOPRAMIDE 5 MG/ML 2 ML VIAL IVP STA (20:19)
[2020-10-02 20:33] LABS: Basophils # (A) 0.1 k/uL (0-0.2); Basophils % (A) 1 %; Eosinophils # (A) 0.3 k/uL (0-0.7); Eosinophils % (A) 2 %; HCT 36.7 % (34.0-46.0); HGB 12.9 gm/dL (11.4-16.0); Lymphocytes # (A) 2.1 k/uL (1.0-4.8); Lymphocytes % (A) 17 %; MCH 30.6 pg (25.0-35.0); MCHC 35.3 g/dL (31.0-37.0); MCV 86.6 fL (80.0-100.0); Mean Platelet Volume 7.6; Monocytes # (A) 0.5 k/uL (0-1.0); Monocytes % (A) 4 %; Neutrophils # (A) 9.7 k/uL (1.3-7.7); Neutrophils % (A) 76 %; Platelet Count 247 k/uL (150-450); RBC 4.23 m/uL (3.80-5.40); RDW 12.7 % (11.5-15.5); WBC 12.7 k/uL (3.8-10.6)
[2020-10-02 20:44] LABS: ALT 22 U/L (4-34); AST 21 U/L (14-36); African American GFR (CKD) >90 (>60 ml/min/1.73 sqM); Albumin 3.6 g/dL (3.5-5.0); Alkaline Phosphatase 53 U/L (38-126); Anion Gap 7 mmol/L; Blood Urea Nitrogen 9 mg/dL (7-17); Calcium 9.3 mg/dL (8.4-10.2); Carbon Dioxide 22 mmol/L (22-30); Chloride 109 mmol/L (98-107); Glucose 109 mg/dL (74-99); Lipase 124 U/L (23-300); Non-African American GFR(CKD) >90 (>60 ml/min/1.73 sqM); Potassium 3.7 mmol/L (3.5-5.1); Sodium 138 mmol/L (137-145); Total Bilirubin 0.3 mg/dL (0.2-1.3); Total Protein 6.5 g/dL (6.3-8.2)
--- NOTE | 2020-10-02 21:09 | US ---
EXAMINATION TYPE: US OB >= 14 wk fetus DATE OF EXAM: 10/02/2020 COMPARISON: 10/02/2019 CLINICAL HISTORY: abd cramping 15 weeks . General pelvic pain per patient. TECHNIQUE: Transabdominal (TA) GESTATIONAL AGE / DATING Physician Established: (15 weeks/1 days) EDC: 03/25/2021 Dates by Current Scan: (15 weeks/5 days) EDC: 03/21/2021 Beta HCG (if available): Not available at this time SURVEY IUP: Single PLACENTA: Anterior PREVIA: No Previa TOMA: 11.7 cm Normal CERVICAL LENGTH (transabdominal: norm > 3.0cm): 3.4 cm BIOMETRY PRESENTATION: Breech BPD: 3.1 cm 15 weeks / 5 days HC: 3.1 cm 15 weeks / 3 days AC: 9.5 cm 15 weeks / 4 days FL: 1.9 cm 15 weeks / 4 days ESTIMATED WEIGHT IN GRAMS: 129.3 grams ESTIMATED WEIGHT IN LBS/OZ: 0 lbs. 5 oz. WEIGHT PERCENTAGE BASED ON ESTABLISHED DATES: 71.2% HC/AC: 1.2 Normal FL/AC: 20.0 HEART RATE: 155 bpm RHYTHM: Normal MATERNAL WALL MEASUREMENT: 4.8 cm from skin to anterior uterine wall (if exam limited due to body aranda bitus). Single live IUP measuring 15 weeks 5 days. There is satisfactory growth compared to 09/06/2020 exam. IMPRESSION: Ultrasound gestational age is 15 weeks and 5 days. No complicating process seen.
[2020-10-02 21:23] LABS: HCG,Quantitative Serum 57636.4 mIU/mL
[2020-10-02 22:02] VITALS: BP 114/86; PULSE 95; TEMP 98.7
[2020-10-02 22:30] LABS: Appearance,Urine Clear (Clear); Bilirubin,Urine Negative (Negative); Blood,Urine Negative (Negative); Color,Urine Yellow; Glucose,Urine (UA) Negative (Negative); Ketones,Urine Negative (Negative); Leukocyte Esterase,Urine Negative (Negative); Nitrite,Urine Negative (Negative); PH, Urine 6.5 (5.0-8.0); Protein,Urine Negative (Negative); Specific Gravity,Urine 1.015 (1.001-1.035)
== END 2020-10-02 22:36 | disposition home or self-care (01) ==
LOC: EC 19:50
DX: O99.612 Diseases of the digestive system complicating pregnancy, second trimester (principal); K52.9 Noninfective gastroenteritis and colitis, unspecified; O99.342 Other mental disorders complicating pregnancy, second trimester; F90.9 Attention-deficit hyperactivity disorder, unspecified type; O99.332 Smoking (tobacco) complicating pregnancy, second trimester; F17.200 Nicotine dependence, unspecified, uncomplicated; Z3A.15 15 weeks gestation of pregnancy
CPT/HCPCS: 36415; 80053; 83690; 85025; 81003; 81025; 84702; 76805; 99284; 96374; 96375; 96361; J1200; J2765

== ENCOUNTER 2020-12-21 18:35 | Outpatient (CLI) | payer OTHER ==
[2020-12-21 19:24] VITALS: BP 141/80; PULSE 113; RESP 16; TEMP 98.2
--- NOTE | 2021-02-01 07:37 | P.MSEPDOC ---
Presenting Problems - Arrival Data Date of Arrival on Unit: 12/21/20 Time of Arrival on Unit: 18:35 Mode of Transport: Ambulatory - Complaint OB-Reason for Admission/Chief Complaint: Other Comment: Fall in shower on buttock at 1630. Medical History - Information : 1 Para: 0 Term: 0 : 0 Abortions: Spontaneous or Elective: 0 Number of Living Children: 0 - Gestational Age Gestational Age by JOCELINE (wks/days): 26 Weeks and 4 Days Review of Systems - Review of Systems Constitutional: No problems Breast: No problems ENT: No problems Cardiovascular: No problems Respiratory: No problems Gastrointestinal: No problems Genitourinary: No problems Musculoskeletal: No problems Neurological: No problems Skin: No problems Vital Signs - Temperature Temperature: 98.2 F Temperature Source: Oral - Pulse Right Brachial Pulse Rate: 113 Pulse Assessment Method: Automatic Cuff - Respirations Respiratory Rate: 16 Oxygen Delivery Method: Room Air - Blood Pressure Right Arm Blood Pressure: 141/80 Blood Pressure Mean: 100 Blood Pressure Source: Automatic Cuff Medical Screen Scoring (Pre) - Cervical Exam Dilation: Exam Deferred Effacement: Exam Deferred Membranes: Intact - Uterine Contractions Frequency: N/A Duration: N/A Intensity: N/A - Maternal Vital Signs Maternal Temperature: N/A Maternal Blood Pressure: N/A Signs of Preeclampsia: N/A Maternal Respirations: N/A - Maternal Trauma Maternal Trauma: N/A - Assessment - Baby A Baseline FHR: 140 Heart Rate - NICHD Category: Category I (Normal) = 0 NST: Reactive Position: N/A Station: N/A - Total Score - Baby A Total Score - Baby A: 0 - Total Score - Baby B Total Score - Baby B: 0 - Total Score - Baby C Total Score - Baby C: 0 - Level of Risk - Baby A Level of Risk - Baby A: Low (0-5) - Level of Risk - Baby B Level of Risk - Baby B: Low (0-5) - Level of Risk - Baby C Level of Risk - Baby C: Low (0-5) Physician Notification (Pre) - Physician Notified Physician Notified Date: 12/21/20 Physician Notified Time: 19:11 New Order Received: Yes - Notification Comment Comment: Dr. Badillo given report on pt. Pt c/o. VS WNL. Cat 1 fht. No contractions or cramping noted per pt or toco. Pt denies pain or bleeding. Orders receieved to d/c pt to home. To educate pt to follow up with Dr. Marsh this week. To educate pt on pelvic rest. Disposition - Disposition OB Disposition: Physician follow up in office, Discharge to home Discharge Date: 12/21/20 Discharge Time: 19:18 I agree with the RN Medical Screening Exam: Yes Case reviewed; plan agreed upon as documented in EMR&OBIX.: Yes Diagnosis: ACUTE PAIN DUE TO TRAUMA
== END 2020-12-21 19:18 | disposition home or self-care (01) ==
LOC: FBPOP 18:35
PROVIDERS: ATTEND Obstetrics & Gynecology
DX: O9A.212 Injury, poisoning and certain other consequences of external causes complicating pregnancy, second trimester (principal); O99.332 Smoking (tobacco) complicating pregnancy, second trimester; G89.11 Acute pain due to trauma; F17.200 Nicotine dependence, unspecified, uncomplicated; Z3A.26 26 weeks gestation of pregnancy
CPT/HCPCS: 99213

== ENCOUNTER 2021-02-05 23:58 | Emergency (ER) | payer OTHER ==
[2021-02-06 00:02] VITALS: TEMP 97.8
[2021-02-06] MEDS ORDERED: SODIUM CHLORIDE 0.9% 1,000 ML IV STA (00:17)
[2021-02-06 00:21] VITALS: RESP 18
[2021-02-06 00:47] LABS: Basophils % (A) 0 %; Eosinophils # (A) 0.1 k/uL (0-0.7); Eosinophils % (A) 1 %; HCT 36.3 % (34.0-46.0); HGB 12.1 gm/dL (11.4-16.0); Lymphocytes # (A) 2.2 k/uL (1.0-4.8); Lymphocytes % (A) 22 %; MCH 29.2 pg (25.0-35.0); MCHC 33.4 g/dL (31.0-37.0); MCV 87.3 fL (80.0-100.0); Mean Platelet Volume 8.2; Monocytes # (A) 0.5 k/uL (0-1.0); Monocytes % (A) 5 %; Neutrophils % (A) 70 %; Platelet Count 227 k/uL (150-450); RBC 4.15 m/uL (3.80-5.40); RDW 15.2 % (11.5-15.5)
--- NOTE | 2021-02-06 00:47 | ED ---
General Adult HPI - General Chief complaint: Shortness of Breath Stated complaint: NESHA, URI Time Seen by Provider: 02/06/21 00:17 Source: patient, RN notes reviewed Mode of arrival: ambulatory - History of Present Illness Initial comments: Patient is a 20-year-old female that presents to emergency department complaining of upper respiratory tract symptoms including cough that is somewhat productive of white phlegm for 2 days. She notes that her roommate's boyfriend has upper respiratory tract infection is been around her. Patient is also 33 weeks with no complications thus far to the . She denied any other symptoms or complaints minus the cough and some chest pain after coughing. She was in no apparent distress or pain while sitting up in bed during the exam interview. She denied any chest pain headache nausea vomiting diarrhea constipation fever fatigue chills. - Related Data Home Medications Medication Instructions Recorded Confirmed Cpb-Qpcl-Yrbte Acid 1 cap PO HS 10/02/20 12/21/20 [-U Capsule (formulary)] Sertraline [Zoloft] 50 mg PO HS 10/02/20 12/21/20 Allergies Allergy/AdvReac Type Severity Reaction Status Date / Time No Known Allergies Allergy Verified 02/06/21 00:03 Review of Systems ROS Statement: Those systems with pertinent positive or pertinent negative responses have been documented in the HPI. ROS Other: All systems not noted in ROS Statement are negative. Past Medical History Past Medical History: No Reported History History of Any Multi-Drug Resistant Organisms: None Reported Past Surgical History: Ear Surgery Additional Past Surgical History / Comment(s): oral surgery Past Psychological History: ADD/ADHD, Anxiety Smoking Status: Never smoker Past Alcohol Use History: None Reported Past Drug Use History: None Reported General Exam General appearance: alert, in no apparent distress, obese Head exam: Present: atraumatic, normocephalic, normal inspection Eye exam: Present: normal appearance, PERRL, EOMI. Absent: scleral icterus, conjunctival injection, periorbital swelling Neck exam: Present: normal inspection Respiratory exam: Present: normal lung sounds bilaterally. Absent: respiratory distress, wheezes, rales, rhonchi, stridor Cardiovascular Exam: Present: regular rate, normal rhythm, normal heart sounds. Absent: systolic murmur, diastolic murmur, rubs, gallop, clicks GI/Abdominal exam: Present: soft, normal bowel sounds. Absent: distended, tenderness, guarding, rebound, rigid Extremities exam: Present: normal inspection, full ROM, normal capillary refill. Absent: tenderness, pedal edema, joint swelling, calf tenderness Neurological exam: Present: alert, oriented X3, CN II-XII intact Psychiatric exam: Present: normal affect, normal mood Skin exam: Present: warm, dry, intact, normal color. Absent: rash Course Vital Signs 02/05/21 02/06/21 02/06/21 23:59 00:18 01:26 Temperature 97.8 F Pulse Rate 112 H 115 H 108 H Respiratory 19 18 18 Rate Blood Pressure 144/90 134/95 126/73 O2 Sat by Pulse 100 96 100 Oximetry EKG Findings - EKG Comments: EKG Findings:: Ventricular rate 105 bpm, GA interval 166 ms, QRS duration 78 ms, QT/QTC 354/467 ms, PRT axes 36/58/33. Sinus tachycardia, otherwise normal ECG. Medical Decision Making - Medical Decision Making 20-year-old female with upper after check symptoms for 2 days. Labs, chest x-ray, EKG, Covid test ordered. X-ray negative for any acute process. Labs unremarkable. Case discussed with Dr. Lord, patient discharge home with follow-up to primary care. - Lab Data Result diagrams: 02/06/21 00:37 02/06/21 00:37 Lab Results 02/06/21 02/06/21 02/06/21 Range/Units 00:37 00:37 00:37 WBC 10.0 (3.8-10.6) k/uL RBC 4.15 (3.80-5.40) m/uL Hgb 12.1 (11.4-16.0) gm/dL Hct 36.3 (34.0-46.0) % MCV 87.3 (80.0-100.0) fL MCH 29.2 (25.0-35.0) pg MCHC 33.4 (31.0-37.0) g/dL RDW 15.2 (11.5-15.5) % Plt Count 227 (150-450) k/uL MPV 8.2 Neutrophils % 70 % Lymphocytes % 22 % Monocytes % 5 % Eosinophils % 1 % Basophils % 0 % Neutrophils # 7.0 (1.3-7.7) k/uL Lymphocytes # 2.2 (1.0-4.8) k/uL Monocytes # 0.5 (0-1.0) k/uL Eosinophils # 0.1 (0-0.7) k/uL Basophils # 0.0 (0-0.2) k/uL Sodium 137 (137-145) mmol/L Chloride 108 H (98-107) mmol/L Carbon Dioxide 19 L (22-30) mmol/L Anion Gap 10 mmol/L BUN 10 (7-17) mg/dL Creatinine 0.69 (0.52-1.04) mg/dL Est GFR (CKD-EPI)AfAm >90 (>60 ml/min/1.73 sqM) Est GFR (CKD-EPI)NonAf >90 (>60 ml/min/1.73 sqM) Glucose 110 H (74-99) mg/dL Calcium 9.5 (8.4-10.2) mg/dL Total Bilirubin 0.2 (0.2-1.3) mg/dL AST 24 (14-36) U/L ALT 14 (4-34) U/L Alkaline Phosphatase 110 (38-126) U/L Total Protein 6.0 L (6.3-8.2) g/dL Albumin 3.3 L (3.5-5.0) g/dL Coronavirus (PCR) Not Detected (Not Detectd) - EKG Data -: EKG Interpreted by [place] EKG shows normal: sinus rhythm Rate: tachycardia EKG Comments: Ventricular rate 105 bpm, GA interval 166 ms, QRS duration 78 ms, QT/QTC 354/467 ms, PRT axes 36/58/33. Sinus tachycardia, otherwise normal ECG. - Radiology Data Radiology results: report reviewed, image reviewed Chest x-ray: Normal chest x-ray Disposition Clinical Impression: Upper respiratory tract infection Disposition: HOME SELF-CARE Condition: Stable Instructions (If sedation given, give patient instructions): Upper Respiratory Infection (ED) Additional Instructions: Please return to the Emergency Department if symptoms worsen or any other concerns. Continue to increase oral fluids getting plan rest and eating well. Follow-up with primary care as needed. Follow-up with [facility] as scheduled. Can take Tylenol for any fevers and/or aches or pains. Is patient prescribed a controlled substance at d/c from ED?: No Referrals: Kaylee Smith MD [Primary Care Provider] - 1-2 days Time of Disposition: 01:31
[2021-02-06 01:07] LABS: ALT 14 U/L (4-34); AST 24 U/L (14-36); African American GFR (CKD) >90 (>60 ml/min/1.73 sqM); Albumin 3.3 g/dL (3.5-5.0); Alkaline Phosphatase 110 U/L (38-126); Anion Gap 10 mmol/L; Blood Urea Nitrogen 10 mg/dL (7-17); Calcium 9.5 mg/dL (8.4-10.2); Carbon Dioxide 19 mmol/L (22-30); Chloride 108 mmol/L (98-107); Glucose 110 mg/dL (74-99); Non-African American GFR(CKD) >90 (>60 ml/min/1.73 sqM); Sodium 137 mmol/L (137-145); Total Bilirubin 0.2 mg/dL (0.2-1.3)
--- NOTE | 2021-02-06 01:17 | XR ---
EXAM: XR Chest, 2 Views CLINICAL HISTORY: ITS.REASON XR Reason: difficulty breathing TECHNIQUE: Frontal and lateral views of the chest. COMPARISON: Chest x-ray dated 05/16/2020 FINDINGS: Lungs: Unremarkable. Pleural space: Unremarkable. Heart: Unremarkable. Mediastinum: Unremarkable. Bones/joints: Unremarkable. IMPRESSION: Normal chest x-rays.
[2021-02-06 01:29] VITALS: BP 126/73; PULSE 108
[2021-02-06 01:30] LABS: Potassium 3.8 mmol/L (3.5-5.1)
== END 2021-02-06 01:35 | disposition home or self-care (01) ==
LOC: EC 23:58
DX: O99.513 Diseases of the respiratory system complicating pregnancy, third trimester (principal); J06.9 Acute upper respiratory infection, unspecified; O99.343 Other mental disorders complicating pregnancy, third trimester; F41.9 Anxiety disorder, unspecified; Z20.822 Contact with and (suspected) exposure to COVID-19; Z3A.33 33 weeks gestation of pregnancy
CPT/HCPCS: 36415; 71046; 80053; 85025; 87635; 96360; 99285

== ENCOUNTER 2021-04-06 18:08 | Emergency (ER) | payer OTHER ==
[2021-04-06 18:12] VITALS: RESP 18; TEMP 98.7
--- NOTE | 2021-04-06 18:26 | ED ---
General Adult HPI - General Chief complaint: Chest Pain Stated complaint: chest pain Source: patient, RN notes reviewed Mode of arrival: ambulatory Limitations: no limitations - History of Present Illness Initial comments: 20-year-old obese white female presents to the emergency room with complaints of chest pain and shortness of breath for the past 3 days. Patient states that she does have a history of anxiety and has been off of her Zoloft after the of her son on March 11. It was a vaginal delivery with no complications. She states that she started taking her Zoloft again 2 days ago. She states she also vapes daily. She states the pain is intermittent, denies any fevers, nausea vomiting or diarrhea. She states that she was told that it could be a pulmonary embolism and that's why she came to the emergency room today. Patient is in no distress. Oxygen saturation is 98% on film spooler showing sinus rhythm at 88. Patient was seen here in the 02/06/2021 and EKG chest x-ray patient does not recall being here at that time. -: days(s) (3) Location: chest Radiation: back Severity scale (1-10): 3 Quality: other Consistency: intermittent (Tightness) Improves with: none Worsens with: none Associated Symptoms: shortness of breath Treatments Prior to Arrival: none - Related Data Home Medications Medication Instructions Recorded Confirmed Iuw-Zjbu-Eswli Acid 1 cap PO HS 10/02/20 04/06/21 [-U Capsule (formulary)] Sertraline [Zoloft] 50 mg PO HS 10/02/20 04/06/21 Allergies Allergy/AdvReac Type Severity Reaction Status Date / Time No Known Allergies Allergy Verified 04/06/21 18:44 Patient : No Review of Systems ROS Statement: Those systems with pertinent positive or pertinent negative responses have been documented in the HPI. ROS Other: All systems not noted in ROS Statement are negative. Past Medical History Past Medical History: No Reported History History of Any Multi-Drug Resistant Organisms: None Reported Past Surgical History: Ear Surgery Additional Past Surgical History / Comment(s): oral surgery Past Psychological History: ADD/ADHD, Anxiety Smoking Status: Vaper Past Alcohol Use History: None Reported Past Drug Use History: None Reported General Exam Limitations: no limitations General appearance: alert, in no apparent distress Head exam: Present: atraumatic, normocephalic, normal inspection Eye exam: Present: normal appearance, PERRL, EOMI. Absent: scleral icterus, conjunctival injection, periorbital swelling ENT exam: Present: normal exam, mucous membranes moist Neck exam: Present: normal inspection, full ROM. Absent: tenderness, meningismus, lymphadenopathy Respiratory exam: Present: normal lung sounds bilaterally. Absent: respiratory distress, wheezes, rales, rhonchi, stridor, chest wall tenderness, accessory muscle use, decreased breath sounds, prolonged expiratory Cardiovascular Exam: Present: regular rate, normal rhythm, normal heart sounds. Absent: systolic murmur, diastolic murmur, rubs, gallop, clicks GI/Abdominal exam: Present: soft, normal bowel sounds. Absent: distended, tenderness, guarding, rebound, rigid Extremities exam: Present: normal inspection, full ROM, normal capillary refill. Absent: tenderness, pedal edema, joint swelling, calf tenderness Back exam: Present: full ROM. Absent: tenderness, CVA tenderness (R), CVA tenderness (L), muscle spasm, paraspinal tenderness, vertebral tenderness Neurological exam: Present: alert, oriented X3, CN II-XII intact Psychiatric exam: Present: normal affect, normal mood Skin exam: Present: warm, dry, intact, normal color. Absent: rash, cyanosis, diaphoretic, erythema, petechiae, pallor, mottled Course Vital Signs 04/06/21 18:09 Temperature 98.7 F Pulse Rate 105 H Respiratory 18 Rate Blood Pressure 135/90 O2 Sat by Pulse 96 Oximetry EKG Findings - EKG Results: EKG: sinus rhythm (Ventricular rate of 93, TN interval 0.168, QRS 0.90, QTC 0.477), not changed from: (02/06/2021) Medical Decision Making - Medical Decision Making WBC count is 10.4, d-dimer is negative at 0.25, magnesium is 1.8 and troponin is negative at 0.012, EKG shows no ST elevation or ectopy. Electrolytes are within normal limits. Patient is well-appearing. Patient did restart taking her Zoloft for her anxiety 2 days ago. This is likely an anxiety reaction as she was concerned that she might have a blood clot worsening her shortness of breath. Patient on film spooler showing no ectopy, heart rate of 88, oxygen saturation 97-98% on room air. Patient in no acute distress. Case was discussed with Dr. Ko who is agreeable to discharge patient home with strict return parameters to return if increasing chest pain, shortness of breath or fevers. - Lab Data Result diagrams: 04/06/21 19:14 04/06/21 19:14 Lab Results 04/06/21 04/06/21 04/06/21 Range/Units 19:14 19:14 19:14 WBC 10.4 (3.8-10.6) k/uL RBC 4.86 (3.80-5.40) m/uL Hgb 14.5 (11.4-16.0) gm/dL Hct 41.9 (34.0-46.0) % MCV 86.3 (80.0-100.0) fL MCH 29.8 (25.0-35.0) pg MCHC 34.5 (31.0-37.0) g/dL RDW 13.0 (11.5-15.5) % Plt Count 341 (150-450) k/uL MPV 7.8 Neutrophils % 71 % Lymphocytes % 22 % Monocytes % 4 % Eosinophils % 2 % Basophils % 0 % Neutrophils # 7.4 (1.3-7.7) k/uL Lymphocytes # 2.2 (1.0-4.8) k/uL Monocytes # 0.4 (0-1.0) k/uL Eosinophils # 0.2 (0-0.7) k/uL Basophils # 0.0 (0-0.2) k/uL D-Dimer 0.25 (<0.60) mg/L FEU Sodium 140 (137-145) mmol/L Potassium 4.3 (3.5-5.1) mmol/L Chloride 104 (98-107) mmol/L Carbon Dioxide 27 (22-30) mmol/L Anion Gap 9 mmol/L BUN 18 H (7-17) mg/dL Creatinine 0.90 (0.52-1.04) mg/dL Est GFR (CKD-EPI)AfAm >90 (>60 ml/min/1.73 sqM) Est GFR (CKD-EPI)NonAf >90 (>60 ml/min/1.73 sqM) Glucose 98 (74-99) mg/dL Calcium 9.7 (8.4-10.2) mg/dL Magnesium 1.8 (1.6-2.3) mg/dL Total Bilirubin 0.3 (0.2-1.3) mg/dL AST 28 (14-36) U/L ALT 21 (4-34) U/L Alkaline Phosphatase 119 (38-126) U/L Troponin I (0.000-0.034) ng/mL Total Protein 7.5 (6.3-8.2) g/dL Albumin 4.6 (3.5-5.0) g/dL 04/06/21 Range/Units 19:14 WBC (3.8-10.6) k/uL RBC (3.80-5.40) m/uL Hgb (11.4-16.0) gm/dL Hct (34.0-46.0) % MCV (80.0-100.0) fL MCH (25.0-35.0) pg MCHC (31.0-37.0) g/dL RDW (11.5-15.5) % Plt Count (150-450) k/uL MPV Neutrophils % % Lymphocytes % % Monocytes % % Eosinophils % % Basophils % % Neutrophils # (1.3-7.7) k/uL Lymphocytes # (1.0-4.8) k/uL Monocytes # (0-1.0) k/uL Eosinophils # (0-0.7) k/uL Basophils # (0-0.2) k/uL D-Dimer (<0.60) mg/L FEU Sodium (137-145) mmol/L Potassium (3.5-5.1) mmol/L Chloride (98-107) mmol/L Carbon Dioxide (22-30) mmol/L Anion Gap mmol/L BUN (7-17) mg/dL Creatinine (0.52-1.04) mg/dL Est GFR (CKD-EPI)AfAm (>60 ml/min/1.73 sqM) Est GFR (CKD-EPI)NonAf (>60 ml/min/1.73 sqM) Glucose (74-99) mg/dL Calcium (8.4-10.2) mg/dL Magnesium (1.6-2.3) mg/dL Total Bilirubin (0.2-1.3) mg/dL AST (14-36) U/L ALT (4-34) U/L Alkaline Phosphatase (38-126) U/L Troponin I <0.012 (0.000-0.034) ng/mL Total Protein (6.3-8.2) g/dL Albumin (3.5-5.0) g/dL Disposition Clinical Impression: Shortness of breath Disposition: HOME SELF-CARE Condition: Good Instructions (If sedation given, give patient instructions): Shortness of Breath (ED) Additional Instructions: Return if any chest pain, worsening shortness of breath or fevers. Continue taking your medication as prescribed and follow-up with your primary care doctor this week. Is patient prescribed a controlled substance at d/c from ED?: No Referrals: Kaylee Smith MD [Primary Care Provider] - 1-2 days Time of Disposition: 20:11
[2021-04-06 19:32] LABS: Basophils % (A) 0 %; Eosinophils # (A) 0.2 k/uL (0-0.7); Eosinophils % (A) 2 %; HCT 41.9 % (34.0-46.0); HGB 14.5 gm/dL (11.4-16.0); Lymphocytes # (A) 2.2 k/uL (1.0-4.8); Lymphocytes % (A) 22 %; MCH 29.8 pg (25.0-35.0); MCHC 34.5 g/dL (31.0-37.0); MCV 86.3 fL (80.0-100.0); Mean Platelet Volume 7.8; Monocytes # (A) 0.4 k/uL (0-1.0); Monocytes % (A) 4 %; Neutrophils # (A) 7.4 k/uL (1.3-7.7); Neutrophils % (A) 71 %; Platelet Count 341 k/uL (150-450); RBC 4.86 m/uL (3.80-5.40); WBC 10.4 k/uL (3.8-10.6)
[2021-04-06 19:33] LABS: Potassium 4.3 mmol/L (3.5-5.1)
[2021-04-06 19:34] LABS: ALT 21 U/L (4-34); AST 28 U/L (14-36); African American GFR (CKD) >90 (>60 ml/min/1.73 sqM); Albumin 4.6 g/dL (3.5-5.0); Alkaline Phosphatase 119 U/L (38-126); Anion Gap 9 mmol/L; Blood Urea Nitrogen 18 mg/dL (7-17); Calcium 9.7 mg/dL (8.4-10.2); Carbon Dioxide 27 mmol/L (22-30); Chloride 104 mmol/L (98-107); Glucose 98 mg/dL (74-99); Magnesium 1.8 mg/dL (1.6-2.3); Non-African American GFR(CKD) >90 (>60 ml/min/1.73 sqM); Sodium 140 mmol/L (137-145); Total Bilirubin 0.3 mg/dL (0.2-1.3); Total Protein 7.5 g/dL (6.3-8.2)
[2021-04-06 21:02] VITALS: BP 118/83; PULSE 80
== END 2021-04-06 21:02 | disposition home or self-care (01) ==
LOC: EC 18:08
DX: R06.02 Shortness of breath (principal); R07.9 Chest pain, unspecified; F41.9 Anxiety disorder, unspecified; E66.9 Obesity, unspecified; F17.290 Nicotine dependence, other tobacco product, uncomplicated; Z68.41 Body mass index [BMI] 40.0-44.9, adult
CPT/HCPCS: 36415; 80053; 83735; 84484; 85025; 85379; 93005; 99285

== ENCOUNTER 2021-04-28 20:48 | Emergency (ER) | payer OTHER ==
[2021-04-28 21:17] VITALS: BP 149/98; PULSE 101; RESP 18; TEMP 98.9
[2021-04-28] MEDS ORDERED: SODIUM CHLORIDE 0.9% 1,000 ML IV STA (23:13)
[2021-04-29 00:09] LABS: Basophils # (A) 0.1 k/uL (0-0.2); Basophils % (A) 1 %; Eosinophils # (A) 0.2 k/uL (0-0.7); Eosinophils % (A) 2 %; HCT 44.1 % (34.0-46.0); Lymphocytes % (A) 31 %; MCH 29.5 pg (25.0-35.0); MCHC 33.9 g/dL (31.0-37.0); MCV 86.8 fL (80.0-100.0); Mean Platelet Volume 7.7; Monocytes # (A) 0.4 k/uL (0-1.0); Monocytes % (A) 4 %; Neutrophils # (A) 5.8 k/uL (1.3-7.7); Neutrophils % (A) 61 %; Platelet Count 346 k/uL (150-450); RBC 5.08 m/uL (3.80-5.40); RDW 14.8 % (11.5-15.5); WBC 9.6 k/uL (3.8-10.6)
[2021-04-29 00:26] LABS: ALT 50 U/L (4-34); AST 51 U/L (14-36); African American GFR (CKD) >90 (>60 ml/min/1.73 sqM); Albumin 4.9 g/dL (3.5-5.0); Alkaline Phosphatase 108 U/L (38-126); Anion Gap 12 mmol/L; Blood Urea Nitrogen 12 mg/dL (7-17); Calcium 10.2 mg/dL (8.4-10.2); Carbon Dioxide 22 mmol/L (22-30); Chloride 103 mmol/L (98-107); Glucose 89 mg/dL (74-99); Lipase 198 U/L (23-300); Non-African American GFR(CKD) >90 (>60 ml/min/1.73 sqM); Potassium 4.5 mmol/L (3.5-5.1); Sodium 137 mmol/L (137-145); Total Bilirubin 0.5 mg/dL (0.2-1.3); Total Protein 7.7 g/dL (6.3-8.2)
[2021-04-29 00:27] LABS: Appearance,Urine Turbid (Clear); Bacteria,Urine Rare /hpf; Bilirubin,Urine Negative (Negative); Blood,Urine Trace (Negative); Color,Urine Yellow; Glucose,Urine (UA) Negative (Negative); Ketones,Urine Negative (Negative); Leukocyte Esterase,Urine Moderate (Negative); Mucus,Urine Rare /hpf; Nitrite,Urine Negative (Negative); Protein,Urine Negative (Negative); RBC,Urine 1 /hpf (0-5); Specific Gravity,Urine 1.013 (1.001-1.035); Squamous Epithelial Cell,Urine 5 /hpf (0-4); Urobilinogen,Urine <2.0 mg/dL (<2.0); WBC,Urine 14 /hpf (0-5)
--- NOTE | 2021-04-29 01:14 | ED ---
Abdominal Pain HPI - General Chief Complaint: Abdominal Pain Stated Complaint: flank pain Time Seen by Provider: 04/28/21 22:52 Source: patient Mode of arrival: ambulatory Limitations: no limitations - History of Present Illness Initial Comments: 20 year-old female patient presents to the emergency department for evaluation of intermittent right upper quadrant pain and right shoulder pain. States she had symptoms on and off for the last few weeks. States she has had some nausea, no vomiting. Able to tolerate oral intake. Denies fever or chills. Denies dark urine, light stool, or yellowing of the skin or eyes. Denies previous abdominal surgery. Denies chance of . Denies abnormal vaginal bleeding or discharge. Denies hematuria, dysuria, urinary urgency or frequency. Patient denies any recent rash, cough, shortness of breath, chest pain, diarrhea, constipation, back pain, numbness, tingling, dizziness, weakness, headache, visual changes, or any other complaints. - Related Data Home Medications Medication Instructions Recorded Confirmed Rsn-Qenb-Yyyrx Acid 1 cap PO HS 10/02/20 04/06/21 [-U Capsule (formulary)] Sertraline [Zoloft] 50 mg PO HS 10/02/20 04/06/21 Allergies Allergy/AdvReac Type Severity Reaction Status Date / Time No Known Allergies Allergy Verified 04/28/21 21:17 Review of Systems ROS Statement: Those systems with pertinent positive or pertinent negative responses have been documented in the HPI. ROS Other: All systems not noted in ROS Statement are negative. Past Medical History Past Medical History: No Reported History History of Any Multi-Drug Resistant Organisms: None Reported Past Surgical History: Ear Surgery Additional Past Surgical History / Comment(s): oral surgery Past Psychological History: ADD/ADHD, Anxiety Smoking Status: Vaper Past Alcohol Use History: None Reported Past Drug Use History: None Reported General Exam Limitations: no limitations General appearance: alert, in no apparent distress, other (Physical well- developed, well-nourished adult female patient in no acute distress. Vital signs upon presentation are temperature 98.9F, pulse 101, respirations 18, blood pressure 149/98, pulse ox 98% on room air.) ENT exam: Present: normal exam, normal oropharynx, mucous membranes moist Respiratory exam: Present: normal lung sounds bilaterally. Absent: respiratory distress, wheezes, rales, rhonchi, stridor Cardiovascular Exam: Present: regular rate, normal rhythm, normal heart sounds. Absent: systolic murmur, diastolic murmur, rubs, gallop, clicks GI/Abdominal exam: Present: soft, tenderness (Midepigastric), normal bowel sounds. Absent: distended, guarding, rebound, rigid Neurological exam: Present: alert, oriented X3, CN II-XII intact Psychiatric exam: Present: normal affect, normal mood Skin exam: Present: warm, dry, intact, normal color. Absent: rash Course Vital Signs 04/28/21 21:12 Temperature 98.9 F Pulse Rate 101 H Respiratory 18 Rate Blood Pressure 149/98 O2 Sat by Pulse 98 Oximetry Medical Decision Making - Medical Decision Making 20 year-old female patient presents for evaluation of right upper quadrant pain and right shoulder pain. Physical examination did reveal midepigastric tenderness. She is afebrile normal vital signs. Labs reviewed and are unremarkable. Geometric mild transaminitis. Normal bilirubin level. Normal white blood cell count. I did discuss findings and results with her. We did discuss possibility for gallbladder dysfunction. We discharge follow up with her primary care physician and is urged to discuss ultrasound or HIDA scan. Return parameters were discussed in detail. She verbalizes understanding and agrees with this plan. My attending is Dr. Lord. - Lab Data Result diagrams: 04/28/21 23:13 04/28/21 23:13 Lab Results 04/28/21 04/28/21 04/28/21 Range/Units 23:13 23:13 23:13 WBC 9.6 (3.8-10.6) k/uL RBC 5.08 (3.80-5.40) m/uL Hgb 15.0 (11.4-16.0) gm/dL Hct 44.1 (34.0-46.0) % MCV 86.8 (80.0-100.0) fL MCH 29.5 (25.0-35.0) pg MCHC 33.9 (31.0-37.0) g/dL RDW 14.8 (11.5-15.5) % Plt Count 346 (150-450) k/uL MPV 7.7 Neutrophils % 61 % Lymphocytes % 31 % Monocytes % 4 % Eosinophils % 2 % Basophils % 1 % Neutrophils # 5.8 (1.3-7.7) k/uL Lymphocytes # 3.0 (1.0-4.8) k/uL Monocytes # 0.4 (0-1.0) k/uL Eosinophils # 0.2 (0-0.7) k/uL Basophils # 0.1 (0-0.2) k/uL Sodium 137 (137-145) mmol/L Potassium 4.5 (3.5-5.1) mmol/L Chloride 103 (98-107) mmol/L Carbon Dioxide 22 (22-30) mmol/L Anion Gap 12 mmol/L BUN 12 (7-17) mg/dL Creatinine 0.72 (0.52-1.04) mg/dL Est GFR (CKD-EPI)AfAm >90 (>60 ml/min/1.73 sqM) Est GFR (CKD-EPI)NonAf >90 (>60 ml/min/1.73 sqM) Glucose 89 (74-99) mg/dL Calcium 10.2 (8.4-10.2) mg/dL Total Bilirubin 0.5 (0.2-1.3) mg/dL AST 51 H (14-36) U/L ALT 50 H (4-34) U/L Alkaline Phosphatase 108 (38-126) U/L Total Protein 7.7 (6.3-8.2) g/dL Albumin 4.9 (3.5-5.0) g/dL Lipase 198 (23-300) U/L Urine Color Yellow Urine Appearance Turbid H (Clear) Urine pH 6.0 (5.0-8.0) Ur Specific [place] 1.013 (1.001-1.035) Urine Protein Negative (Negative) Urine Glucose (UA) Negative (Negative) Urine Ketones Negative (Negative) Urine Blood Trace H (Negative) Urine Nitrite Negative (Negative) Urine Bilirubin Negative (Negative) Urine Urobilinogen <2.0 (<2.0) mg/dL Ur Leukocyte Esterase Moderate H (Negative) Urine RBC 1 (0-5) /hpf Urine WBC 14 H (0-5) /hpf Ur Squamous Epith Cells 5 H (0-4) /hpf Urine Bacteria Rare H (None) /hpf Urine Mucus Rare H (None) /hpf Urine HCG, Qual (Not Detectd) 04/28/21 Range/Units 23:14 WBC (3.8-10.6) k/uL RBC (3.80-5.40) m/uL Hgb (11.4-16.0) gm/dL Hct (34.0-46.0) % MCV (80.0-100.0) fL MCH (25.0-35.0) pg MCHC (31.0-37.0) g/dL RDW (11.5-15.5) % Plt Count (150-450) k/uL MPV Neutrophils % % Lymphocytes % % Monocytes % % Eosinophils % % Basophils % % Neutrophils # (1.3-7.7) k/uL Lymphocytes # (1.0-4.8) k/uL Monocytes # (0-1.0) k/uL Eosinophils # (0-0.7) k/uL Basophils # (0-0.2) k/uL Sodium (137-145) mmol/L Potassium (3.5-5.1) mmol/L Chloride (98-107) mmol/L Carbon Dioxide (22-30) mmol/L Anion Gap mmol/L BUN (7-17) mg/dL Creatinine (0.52-1.04) mg/dL Est GFR (CKD-EPI)AfAm (>60 ml/min/1.73 sqM) Est GFR (CKD-EPI)NonAf (>60 ml/min/1.73 sqM) Glucose (74-99) mg/dL Calcium (8.4-10.2) mg/dL Total Bilirubin (0.2-1.3) mg/dL AST (14-36) U/L ALT (4-34) U/L Alkaline Phosphatase (38-126) U/L Total Protein (6.3-8.2) g/dL Albumin (3.5-5.0) g/dL Lipase (23-300) U/L Urine Color Urine Appearance (Clear) Urine pH (5.0-8.0) Ur Specific [place] (1.001-1.035) Urine Protein (Negative) Urine Glucose (UA) (Negative) Urine Ketones (Negative) Urine Blood (Negative) Urine Nitrite (Negative) Urine Bilirubin (Negative) Urine Urobilinogen (<2.0) mg/dL Ur Leukocyte Esterase (Negative) Urine RBC (0-5) /hpf Urine WBC (0-5) /hpf Ur Squamous Epith Cells (0-4) /hpf Urine Bacteria (None) /hpf Urine Mucus (None) /hpf Urine HCG, Qual Not Detected (Not Detectd) Disposition Clinical Impression: Abdominal pain Disposition: HOME SELF-CARE Condition: Good Instructions (If sedation given, give patient instructions): Abdominal Pain (ED) Additional Instructions: Follow-up with the general surgeon for further evaluation of your pain. Follow up with your primary care physician for recheck in 1-2 days. Discuss ultrasound of the gallbladder or HIDA scan. Return to the emergency department for any new, worsening, or concerning symptoms. Is patient prescribed a controlled substance at d/c from ED?: No Referrals: Kaylee Smith MD [Primary Care Provider] - 1-2 days Lucie Garcia MD [STAFF PHYSICIAN] - 1-2 days Time of Disposition: 01:13
== END 2021-04-29 01:24 | disposition home or self-care (01) ==
LOC: EC 20:48
DX: R10.11 Right upper quadrant pain (principal); M25.511 Pain in right shoulder; F90.9 Attention-deficit hyperactivity disorder, unspecified type; F41.9 Anxiety disorder, unspecified; F17.200 Nicotine dependence, unspecified, uncomplicated
CPT/HCPCS: 36415; 80053; 81001; 81025; 83690; 85025; 87086; 96360; 99284

== ENCOUNTER 2021-07-07 04:05 | Emergency (ER) | payer OTHER ==
[2021-07-07] MEDS ORDERED: SODIUM CHLORIDE 0.9% 50 ML IVPB ONE (05:45)
--- NOTE | 2021-07-07 05:54 | ED ---
General Adult HPI - General Chief complaint: Shortness of Breath Stated complaint: Headache, Covid exposure Time Seen by Provider: 07/07/21 04:38 Source: patient Mode of arrival: ambulatory - History of Present Illness Initial comments: This patient is 21-year-old woman presenting with fever and chills, myalgias, mild headache, cough and recently tested positive for COVID-19 infection. Symptoms started over the past 1-2 days. Onset/Timin -: days(s) Location: head Consistency: constant Improves with: none Worsens with: none Associated Symptoms: cough, fever/chills Treatments Prior to Arrival: none - Related Data Home Medications Medication Instructions Recorded Confirmed [id number] Acid 1 cap PO HS 10/02/20 04/06/21 [-U Capsule (formulary)] Sertraline [Zoloft] 50 mg PO HS 10/02/20 04/06/21 Allergies Allergy/AdvReac Type Severity Reaction Status Date / Time No Known Allergies Allergy Verified 07/07/21 04:22 Review of Systems ROS Statement: Those systems with pertinent positive or pertinent negative responses have been documented in the HPI. ROS Other: All systems not noted in ROS Statement are negative. Constitutional: Reports: fever, chills Eyes: Denies: vision change Respiratory: Reports: cough. Denies: dyspnea Cardiovascular: Denies: chest pain, palpitations Gastrointestinal: Reports: nausea. Denies: abdominal pain, vomiting, diarrhea Genitourinary: Denies: dysuria, hematuria Musculoskeletal: Reports: myalgia. Denies: back pain Skin: Denies: rash Neurological: Reports: headache Past Medical History Past Medical History: No Reported History History of Any Multi-Drug Resistant Organisms: None Reported Past Surgical History: Ear Surgery Additional Past Surgical History / Comment(s): oral surgery Past Psychological History: ADD/ADHD, Anxiety Smoking Status: Vaper Past Alcohol Use History: Occasional Past Drug Use History: None Reported General Exam General appearance: alert, in no apparent distress Head exam: Present: atraumatic, normocephalic Eye exam: Present: normal appearance. Absent: scleral icterus, conjunctival injection Respiratory exam: Present: normal lung sounds bilaterally. Absent: respiratory distress, wheezes, rales, rhonchi, stridor Cardiovascular Exam: Present: normal rhythm, tachycardia, normal heart sounds. Absent: systolic murmur, diastolic murmur, rubs, gallop GI/Abdominal exam: Present: soft. Absent: distended, tenderness, guarding, r ebound, rigid, mass Extremities exam: Present: normal inspection, normal capillary refill. Absent: pedal edema, calf tenderness Back exam: Present: normal inspection. Absent: CVA tenderness (R), CVA tenderness (L) Neurological exam: Present: alert Skin exam: Present: warm, dry, intact, normal color. Absent: rash Course Vital Signs 07/07/21 07/07/21 04:22 08:30 Temperature 98.4 F 98.7 F Pulse Rate 116 H 100 Respiratory 19 18 Rate Blood Pressure 126/85 107/71 O2 Sat by Pulse 97 97 Oximetry Disposition Clinical Impression: COVID-19 Disposition: HOME SELF-CARE Condition: Good Instructions (If sedation given, give patient instructions): Coronavirus Disease 2019 (COVID-19) Is patient prescribed a controlled substance at d/c from ED?: No Referrals: Kaylee Smith MD [Primary Care Provider] - 1-2 days
[2021-07-07] MEDS ORDERED: CASIRIVIMAB (REGN10933) (EUA) 600 MG, IMDEVIMAB (REGN10987) (EUA) 600 MG in SODIUM CHLO... IVPB ONE (06:00)
[2021-07-07 08:36] VITALS: BP 107/71; PULSE 100; RESP 18; TEMP 98.7
== END 2021-07-07 08:30 | disposition home or self-care (01) ==
LOC: EC 04:05
DX: U07.1 COVID-19 (principal); F17.290 Nicotine dependence, other tobacco product, uncomplicated
CPT/HCPCS: 96365 ×2; 99284 ×2; M0243; Q0243

== ENCOUNTER 2022-12-27 17:37 | Emergency (ER) | payer OTHER ==
--- NOTE | 2022-12-27 17:40 | ED ---
General Adult HPI - General Source: RN notes reviewed <Krisyt Parada - Last Filed: 12/27/22 17:40> <Isabelle Beasley - Last Filed: 12/27/22 22:24> - General Stated complaint: Tachycardia Time Seen by Provider: 12/27/22 17:40 - History of Present Illness Initial comments: 22-year-old female who is approximately 27 weeks presents to the emergency department with a chief complaint of palpitations and shortness of breath that started approximately 3 hours ago. (Kristy Parada) Patient is a 22-year-old A0 female at 27 weeks and presents to the emergency department for palpitations. Patient states she has had intermittent palpitations throughout her whole which have worsened today. She denies any chest pain. She did have some shortness of breath in the waiting room but states she was very anxious and shortness of breath has resolved now. She has history of SYED and panic attacks. She denies nausea, vomiting, diarrhea. She denies history of arrhythmia, DVT and PE. No leg pain or swelling. No family history of arrhythmia or sudden cardiac . No abdominal pain or vaginal bleeding. OB is Dr. Pickering. (Isabelle Beasley) - Related Data Home Medications Medication Instructions Recorded Confirmed No Known Home Medications 12/27/22 12/27/22 Allergies Allergy/AdvReac Type Severity Reaction Status Date / Time No Known Allergies Allergy Verified 12/27/22 20:50 Review of Systems ROS Other: All systems not noted in ROS Statement are negative. <Kirsty Parada - Last Filed: 12/27/22 17:40> ROS Other: All systems not noted in ROS Statement are negative. <Isbaelle Beasley - Last Filed: 12/27/22 22:24> ROS Statement: Those systems with pertinent positive or pertinent negative responses have been documented in the HPI. Past Medical History Past Medical History: No Reported History History of Any Multi-Drug Resistant Organisms: None Reported Past Surgical History: Ear Surgery Additional Past Surgical History / Comment(s): oral surgery Past Psychological History: ADD/ADHD, Anxiety Smoking Status: Vaper Past Alcohol Use History: Occasional Past Drug Use History: None Reported <Kristy Parada - Last Filed: 12/27/22 17:40> General Exam <Kristy Parada - Last Filed: 12/27/22 17:40> General appearance: alert, in no apparent distress, anxious Head exam: Present: atraumatic, normocephalic, normal inspection ENT exam: Present: mucous membranes dry Respiratory exam: Present: normal lung sounds bilaterally. Absent: respiratory distress, wheezes, rales, rhonchi, stridor Cardiovascular Exam: Present: normal rhythm, tachycardia, normal heart sounds. Absent: regular rate, bradycardia, systolic murmur, diastolic murmur, rubs, gallop, clicks, JVD, S3, S4 GI/Abdominal exam: Present: soft, normal bowel sounds. Absent: distended, tenderness, guarding, rebound, rigid Neurological exam: Present: alert, oriented X3, CN II-XII intact Psychiatric exam: Present: normal affect, normal mood Skin exam: Present: warm, dry, intact, normal color. Absent: rash <Isabelle Beasley - Last Filed: 12/27/22 22:24> - General Exam Comments Initial Comments: Visual Physical Exam Vital signs reviewed General: Well-appearing, nontoxic, no acute distress. 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 sent in by a medical professional or institution (CLAIRE Alfonso, WIRING MECHANIC, urgent care, hospital, or snf...) When possible be specific @ -No Did you speak to anyone other than the patient for history (EMS, parent, family, police, friend...)? What history was obtained from this source @ -No Did you review nursing and triage notes (agree or disagree)? Why? @ -I reviewed and agree with nursing and triage notes Were old charts reviewed (outside hosp., previous admission, EMS record, old EKG, old radiological studies, urgent care reports/EKG's, snf records)? Report findings @ -No old charts were reviewed Differential Diagnosis (chest pain, altered mental status, abdominal pain women, abdominal pain men, vaginal bleeding, weakness, fever, dyspnea, syncope, headache, dizziness, GI bleed, back pain, seizure, CVA, palpatations, mental health)? @ Differential Palpitations Ventricular arrhythmias, atrial arrhythmias, myocardial infarction, anemia, thyrotoxicosis, electrolyte imbalance, hypokalemia, pulmonary embolism, pulmonary disease, drugs, alcohol, anxiety, stress.... This is not meant to be an all-inclusive list. EKG interpreted by me (3pts min.). @ -As above X-rays interpreted by me (1pt min.). @ -None done CT interpreted by me (1pt min.). @ -Yes, CT of the chest with and she was negative for PE. There is a hepatic steatosis and splenomegaly U/S interpreted by me (1pt. min.). @ -None done What testing was considered but not performed or refused? (CT, X-rays, U/S, labs)? Why? @ -None What meds were considered but not given or refused? Why? @ -None Did you discuss the management of the patient with other professionals (professionals i.e. CLAIRE Alfonso, WIRING MECHANIC, lab, RT, psych nurse, social security assessor, ic designer standard cells, teacher, sheriff officer, behavioral health case manager)? Give summary @ -No Was smoking cessation discussed for >3mins.? @ -No Was critical care preformed (if so, how long)? @ -No Were there social determinants of health that impacted care today? How? (Homelessness, low income, unemployed, alcoholism, drug addiction, transportation, low edu. Level, literacy, decrease access to med. care, long-term, rehab)? @ -No Was there de-escalation of care discussed even if they declined (Discuss DNR or withdrawal of care, Hospice)? DNR status @ -No What co-morbidities impacted this encounter? (DM, HTN, Smoking, COPD, CAD, Cancer, CVA, ARF, Chemo, Hep., AIDS, mental health diagnosis, sleep apnea, morbid obesity)? @ -None Was patient admitted / discharged? Hospital course, mention meds given and r oute, prescriptions, significant lab abnormalities, going to OR and other pertinent info. @ -Patient presenting for palpitations. Patient did become very anxious in triage her pulse jumped from 127 to 150. Patient does not have chest pains or shortness of breath. Patient does seem dehydrated however pulmonary embolism could not be ruled out therefore d-dimer was obtained which is elevated at 0.65. Discussed case with patient in detail. After fluid bolus pulse is 105. I have low suspicion for pulmonary embolism as patient does not have chest pain or shortness of breath. She is not hypoxic. She does not have any family history. We discussed risks versus benefits of CT imaging during patient ultimately want CT. Patient was taken to CT she did have a panic attack Benadryl was ordered for anxiety with panic attack however patient declined. She was able to get the CT which is negative for PE. There is hepatic steatosis and splenomegaly. Results discussed the patient. Patient does not have any fever or cold-like symptoms. She is pleased with results and will be discharged home. She is encouraged to increase water intake and she will follow-up with her seismograph recorder. Undiagnosed new problem with uncertain prognosis? @ -No Drug Therapy requiring intensive monitoring for toxicity (Heparin, Nitro, Insulin, Cardizem)? @ -No Were any procedures done? @ -No Diagnosis/symptom? @ -tachycardia, palpitations Acute, or Chronic, or Acute on Chronic? @ -acute Uncomplicated (without systemic symptoms) or Complicated (systemic symptoms)? @ -uncomplicated Side effects of treatment? @ -No Exacerbation, Progression, or Severe Exacerbation? @ -No Poses a threat to life or bodily function? How? (Chest pain, USA, IA, pneumonia, PE, COPD, DKA, ARF, appy, cholecystitis, CVA, Diverticulitis, Homicidal, Suicidal, threat to staff... and all critical care pts) @ -No Dr. Gray is my attending (Isabelle Beasley) - Lab Data Lab Results 12/27/22 12/27/22 12/27/22 Range/Units 18:30 18:30 18:30 WBC 13.6 H (3.8-10.6) k/uL RBC 4.76 (3.80-5.40) m/uL Hgb 13.7 (11.4-16.0) gm/dL Hct 40.5 (34.0-46.0) % MCV 85.1 (80.0-100.0) fL MCH 28.8 (25.0-35.0) pg MCHC 33.9 (31.0-37.0) g/dL RDW 13.8 (11.5-15.5) % Plt Count 258 (150-450) k/uL MPV 8.5 Neutrophils % 80 % Lymphocytes % 14 % Monocytes % 4 % Eosinophils % 1 % Basophils % 0 % Neutrophils # 10.9 H (1.3-7.7) k/uL Lymphocytes # 2.0 (1.0-4.8) k/uL Monocytes # 0.5 (0-1.0) k/uL Eosinophils # 0.1 (0-0.7) k/uL Basophils # 0.1 (0-0.2) k/uL D-Dimer (<0.60) mg/L FEU Sodium 138 (137-145) mmol/L Potassium 4.0 (3.5-5.1) mmol/L Chloride 107 (98-107) mmol/L Carbon Dioxide 20 L (22-30) mmol/L Anion Gap 11 mmol/L BUN 6 L (7-17) mg/dL Creatinine 0.50 L (0.52-1.04) mg/dL Est GFR (CKD-EPI)AfAm >90 (>60 ml/min/1.73 sqM) Est GFR (CKD-EPI)NonAf >90 (>60 ml/min/1.73 sqM) Glucose 104 H (74-99) mg/dL Calcium 9.6 (8.4-10.2) mg/dL Total Bilirubin 0.6 (0.2-1.3) mg/dL AST 28 (14-36) U/L ALT 24 (4-34) U/L Alkaline Phosphatase 88 (38-126) U/L Troponin I <0.012 (0.000-0.034) ng/mL Total Protein 7.5 (6.3-8.2) g/dL Albumin 4.2 (3.5-5.0) g/dL 12/27/22 Range/Units 18:30 WBC (3.8-10.6) k/uL RBC (3.80-5.40) m/uL Hgb (11.4-16.0) gm/dL Hct (34.0-46.0) % MCV (80.0-100.0) fL MCH (25.0-35.0) pg MCHC (31.0-37.0) g/dL RDW (11.5-15.5) % Plt Count (150-450) k/uL MPV Neutrophils % % Lymphocytes % % Monocytes % % Eosinophils % % Basophils % % Neutrophils # (1.3-7.7) k/uL Lymphocytes # (1.0-4.8) k/uL Monocytes # (0-1.0) k/uL Eosinophils # (0-0.7) k/uL Basophils # (0-0.2) k/uL D-Dimer 0.65 H (<0.60) mg/L FEU Sodium (137-145) mmol/L Potassium (3.5-5.1) mmol/L Chloride (98-107) mmol/L Carbon Dioxide (22-30) mmol/L Anion Gap mmol/L BUN (7-17) mg/dL Creatinine (0.52-1.04) mg/dL Est GFR (CKD-EPI)AfAm (>60 ml/min/1.73 sqM) Est GFR (CKD-EPI)NonAf (>60 ml/min/1.73 sqM) Glucose (74-99) mg/dL Calcium (8.4-10.2) mg/dL Total Bilirubin (0.2-1.3) mg/dL AST (14-36) U/L ALT (4-34) U/L Alkaline Phosphatase (38-126) U/L Troponin I (0.000-0.034) ng/mL Total Protein (6.3-8.2) g/dL Albumin (3.5-5.0) g/dL Disposition <Kristy Parada - Last Filed: 12/27/22 17:40> Is patient prescribed a controlled substance at d/c from ED?: No Time of Disposition: 22:16 <Isabelle Beasley - Last Filed: 12/27/22 22:24> Clinical Impression: Tachycardia, Palpitations Disposition: HOME SELF-CARE Condition: Good Instructions (If sedation given, give patient instructions): Heart Palpitations (ED) Additional Instructions: Increase water intake. Follow-up with seismograph recorder and primary care provider in 1-2 days. Avoid any strenuous activity or high contact sports as she spleen was a little enlarged today on CT scan. Return to the emergency department if you experience new, concerning, or worsening symptoms. Referrals: Kaylee Smith MD [Primary Care Provider] - 1-2 days
[2022-12-27 17:52] VITALS: TEMP 98
[2022-12-27 18:53] LABS: Basophils # (A) 0.1 k/uL (0-0.2); Basophils % (A) 0 %; Eosinophils # (A) 0.1 k/uL (0-0.7); Eosinophils % (A) 1 %; HCT 40.5 % (34.0-46.0); HGB 13.7 gm/dL (11.4-16.0); Lymphocytes % (A) 14 %; MCH 28.8 pg (25.0-35.0); MCHC 33.9 g/dL (31.0-37.0); MCV 85.1 fL (80.0-100.0); Mean Platelet Volume 8.5; Monocytes # (A) 0.5 k/uL (0-1.0); Monocytes % (A) 4 %; Neutrophils # (A) 10.9 k/uL (1.3-7.7); Neutrophils % (A) 80 %; Platelet Count 258 k/uL (150-450); RBC 4.76 m/uL (3.80-5.40); RDW 13.8 % (11.5-15.5); WBC 13.6 k/uL (3.8-10.6)
[2022-12-27 19:28] LABS: ALT 24 U/L (4-34); AST 28 U/L (14-36); African American GFR (CKD) >90 (>60 ml/min/1.73 sqM); Albumin 4.2 g/dL (3.5-5.0); Alkaline Phosphatase 88 U/L (38-126); Anion Gap 11 mmol/L; Blood Urea Nitrogen 6 mg/dL (7-17); Calcium 9.6 mg/dL (8.4-10.2); Carbon Dioxide 20 mmol/L (22-30); Chloride 107 mmol/L (98-107); Glucose 104 mg/dL (74-99); Non-African American GFR(CKD) >90 (>60 ml/min/1.73 sqM); Sodium 138 mmol/L (137-145); Total Bilirubin 0.6 mg/dL (0.2-1.3); Total Protein 7.5 g/dL (6.3-8.2)
[2022-12-27] MEDS ORDERED: SODIUM CHLORIDE 0.9% 1,000 ML IV STA (19:48)
[2022-12-27 21:03] VITALS: RESP 18
[2022-12-27] MEDS ORDERED: diphenhydrAMINE 50 MG/ML 1 ML VIAL IVP STA (21:36)
--- NOTE | 2022-12-27 22:04 | CT ---
EXAMINATION TYPE: CT chest angio for PE CT DLP: 627.9 mGycm, Automated exposure control for dose reduction was used. DATE OF EXAM: 12/27/2022 9:57 PM COMPARISON: Chest radiograph from 11/15/2022 CLINICAL INDICATION:Female, 22 years old with history of palpitations, tachycardia; palpitations, tac hycardia. 27 weeks . TECHNIQUE/CONTRAST: CTA scan of the thorax is performed with IV Contrast, patient injected with 100ml mL of Isovue 370, p ulmonary embolism protocol. MIP images are created and reviewed. FINDINGS: Pulmonary Artery: There is no evidence for a central filling defect within the central pulmonary vasc ulature to suggest acute pulmonary embolism. Limited evaluation of the segmental and subsegmental bra nches secondary to bolus timing. The pulmonary artery is of normal size. Lungs/Pleura: No evidence of focal consolidation, pleural effusion or pneumothorax. Airway: Large airways are patent. Heart: Heart is within normal limits for size. No pericardial effusion. Vasculature: No evidence of aortic aneurysm. Mediastinum: No gross evidence of adenopathy. Musculoskeletal: No acute osseous abnormalities Soft Tissues: Unremarkable. Lower neck: No significant findings. Upper Abdomen: Diffuse low-attenuation to the liver parenchyma. Enlarged spleen measuring 15.8 cm in AP dimension. IMPRESSION: 1. No evidence of central pulmonary embolism. Limited evaluation of the segmental and subsegmental br anches. 2. Hepatic steatosis. 3. Splenomegaly.
[2022-12-27 22:12] VITALS: BP 127/80; PULSE 86
[2022-12-27 23:27] LABS: Appearance,Urine Clear (Clear); Bilirubin,Urine Negative (Negative); Blood,Urine Negative (Negative); Color,Urine Light Yellow; Glucose,Urine (UA) Negative (Negative); Ketones,Urine Trace (Negative); Leukocyte Esterase,Urine Negative (Negative); Nitrite,Urine Negative (Negative); PH, Urine 6.5 (5.0-8.0); Protein,Urine Negative (Negative); Specific Gravity,Urine 1.044 (1.001-1.035); Urobilinogen,Urine <2.0 mg/dL (<2.0)
== END 2022-12-27 22:35 | disposition home or self-care (01) ==
LOC: EC 17:37
DX: O26.612 Liver and biliary tract disorders in pregnancy, second trimester (principal); O26.892 Other specified pregnancy related conditions, second trimester; O9A.512 Psychological abuse complicating pregnancy, second trimester; O99.332 Smoking (tobacco) complicating pregnancy, second trimester; R00.0 Tachycardia, unspecified; R00.2 Palpitations; F17.290 Nicotine dependence, other tobacco product, uncomplicated; F41.9 Anxiety disorder, unspecified; Z3A.27 27 weeks gestation of pregnancy
CPT/HCPCS: 36415; 93005; 85379; 80053; 84484; 85025; 81003; 71275; 99285; 96360; Q9967

== ENCOUNTER 2023-01-05 00:48 | Outpatient (CLI) | payer OTHER ==
[2023-01-05 02:49] VITALS: BP 131/78; PULSE 117; RESP 16; TEMP 98.1
--- NOTE | 2023-01-10 18:09 | P.MSEPDOC ---
Presenting Problems - Arrival Data Date of Arrival on Unit: 01/05/23 Time of Arrival on Unit: 00:48 Mode of Transport: Ambulatory - Complaint OB-Reason for Admission/Chief Complaint: Other Comment: Dog pushed off belly c/o cramping on left side of abdomen Medical History - Information : 2 Para: 1 Term: 1 : 0 Abortions: Spontaneous or Elective: 0 Number of Living Children: 1 - Gestational Age Gestational Age by JOCELINE (wks/days): 28 Weeks and 1 Days Review of Systems - Review of Systems Constitutional: No problems Breast: No problems ENT: No problems Cardiovascular: No problems Respiratory: No problems Gastrointestinal: No problems Genitourinary: No problems Musculoskeletal: No problems Neurological: No problems Skin: No problems Vital Signs - Temperature Temperature: 98.1 F Temperature Source: Oral - Pulse Right Supine Pulse Rate: 117 Pulse Assessment Method: Automatic Cuff - Respirations Respiratory Rate: 16 Oxygen Delivery Method: Room Air - Blood Pressure Right Arm Sitting Blood Pressure: 131/78 Blood Pressure Mean: 95 Blood Pressure Source: Automatic Cuff Medical Screen Scoring - Assessment - Baby A Baseline FHR: 145 Heart Rate - NICHD Category: Category I (Normal) NST: Reactive Physician Notification - Physician Notified Physician Notified Date: 01/05/23 Physician Notified Time: 01:45 Physician: Kayla Vee New Order Received: Yes (january d/c home, increase fluids and rest.) - Notification Comment Comment: 09/17 dog pushed off her belly. no contractions noted, belly is soft, non tender. no bleeding. NST is reactive. Maternal Triage Index - Maternal Triage Index Presenting for scheduled procedure w/no complaint: No - Stat/Priority 1 Stat Priority 1: No - Urgent/Priority 2 Urgent Priority 2: No - Prompt/Priority 3 Prompt Priority 3: No - Non-Urgent/Priority 4 Non-Urgent Priority 4: Yes Criteria Met for Priority 4: pt is 28 1/7 but not urgent, pts dog pushed off her belly she is now having some left side cramping. pt is not jigar. Abdomen is soft, non tender. - Scheduled/Requesting Priority 5 Scheduled/Requesting Priority 5: No Disposition - Disposition OB Disposition: Discharge to home, Written follow up instructions reviewed Discharge Date: 01/05/23 Discharge Time: 02:00 I agree with the RN Medical Screening Exam: Yes Case reviewed; plan agreed upon as documented in EMR&OBIX.: Yes Diagnosis: ACUTE PAIN DUE TO TRAUMA
== END 2023-01-05 02:00 | disposition home or self-care (01) ==
LOC: FBPOP 00:48
PROVIDERS: ATTEND Obstetrics & Gynecology Obstetrics
DX: O71.9 Obstetric trauma, unspecified (principal); O99.333 Smoking (tobacco) complicating pregnancy, third trimester; G89.11 Acute pain due to trauma; F17.200 Nicotine dependence, unspecified, uncomplicated; Z3A.28 28 weeks gestation of pregnancy
CPT/HCPCS: 59025; G0463; 99213

== ENCOUNTER 2023-01-05 16:02 | Outpatient (CLI) | payer OTHER ==
[2023-01-05 17:55] VITALS: BP 128/83; PULSE 122; RESP 16; TEMP 97.1
--- NOTE | 2023-02-04 11:29 | P.MSEPDOC ---
Presenting Problems - Arrival Data Date of Arrival on Unit: 01/05/23 Time of Arrival on Unit: 16:02 Mode of Transport: Ambulatory - Complaint OB-Reason for Admission/Chief Complaint: Pain Comment: cramping, rates 5 on scale of 0-10 Medical History - Information : 2 Para: 1 Term: 1 : 0 Abortions: Spontaneous or Elective: 0 Number of Living Children: 1 - Gestational Age Gestational Age by JOCELINE (wks/days): 28 Weeks and 1 Days Review of Systems - Review of Systems Constitutional: No problems Breast: No problems ENT: No problems Cardiovascular: No problems Respiratory: No problems Gastrointestinal: No problems Genitourinary: No problems Musculoskeletal: No problems Neurological: No problems Skin: No problems Vital Signs - Temperature Temperature: 97.1 F Temperature Source: Temporal Artery Scan - Pulse Right Sitting Pulse Rate: 122 Pulse Assessment Method: Automatic Cuff - Respirations Respiratory Rate: 16 Oxygen Delivery Method: Room Air O2 Sat by Pulse Oximetry: 100 - Blood Pressure Right Arm Blood Pressure: 128/83 Blood Pressure Mean: 98 Blood Pressure Source: Automatic Cuff Medical Screen Scoring - Assessment - Baby A Baseline FHR: 150 Heart Rate - NICHD Category: Category I (Normal) NST: Reactive Physician Notification - Physician Notified Physician Notified Date: 01/05/23 Physician Notified Time: 17:41 Physician: Chon Garcia Order Received: Yes (d./c) Maternal Triage Index - Non-Urgent/Priority 4 Non-Urgent Priority 4: Yes Criteria Met for Priority 4: reactive nst, no contractions on monitor Disposition - Disposition OB Disposition: Discharge to home Discharge Date: 01/05/23 Discharge Time: 17:43 I agree with the RN Medical Screening Exam: Yes Physician's MSE Comment: I have neither seen nor examined the patient. Case reviewed; plan agreed upon as documented in EMR&OBIX.: Yes Diagnosis: RELATED CONDITIONS, UNSPECIFIED, THIRD TRIMESTER
== END 2023-01-05 17:43 | disposition home or self-care (01) ==
LOC: FBPOP 16:02
PROVIDERS: ATTEND Obstetrics & Gynecology
DX: O26.893 Other specified pregnancy related conditions, third trimester (principal); O99.333 Smoking (tobacco) complicating pregnancy, third trimester; F17.200 Nicotine dependence, unspecified, uncomplicated; Z3A.28 28 weeks gestation of pregnancy
CPT/HCPCS: 59025; G0463; 99213

== ENCOUNTER 2023-04-06 12:35 | Emergency (ER) | payer OTHER ==
[2023-04-06] MEDS ORDERED: SODIUM CHLORIDE 0.9% 1,000 ML IV STA (12:56)
[2023-04-06] MEDS ORDERED: KETOROLAC 15 MG/ML 1 ML VIAL IVP STA (12:57)
[2023-04-06 13:00] VITALS: RESP 18
[2023-04-06] MEDS ORDERED: IBUPROFEN 800 MG TAB PO STA (13:42)
[2023-04-06 14:19] LABS: RBC,Urine <1 /hpf (0-5); Squamous Epithelial Cell,Urine 1 /hpf (0-4); WBC,Urine 2 /hpf (0-5)
[2023-04-06 14:38] LABS: Color,Urine Colorless
[2023-04-06 14:39] LABS: Appearance,Urine Clear (Clear); Bilirubin,Urine 1+ (Negative); Glucose,Urine (UA) Negative (Negative); Ketones,Urine Negative (Negative); Protein,Urine Negative (Negative); Specific Gravity,Urine 1.015 (1.001-1.035)
[2023-04-06 14:40] LABS: Blood,Urine Small (Negative); Leukocyte Esterase,Urine Small (Negative); Nitrite,Urine Negative (Negative); Urobilinogen,Urine <2.0 mg/dL (<2.0)
--- NOTE | 2023-04-06 14:55 | ED ---
Female Urogenital HPI - General Chief complaint: Urogenital Stated complaint: poss uti, back pain, abd pain Time Seen by Provider: 04/06/23 12:51 Source: patient Mode of arrival: ambulatory Limitations: no limitations - History of Present Illness Initial comments: Patient is a 22-year-old female who presents to the emergency department for suprapubic discomfort. Patient is she had a vaginal delivery 9 days ago. It went well complications. Yesterday she started to feel suprapubic discomfort and lower back pain. She does have some urinary urgency. No increased frequency or burning. No vaginal discharge. No concern for sexually transmitted infections. No fever, chills, nausea, vomiting. She does have some vaginal bleeding which is improving since childbirth. - Related Data Home Medications Medication Instructions Recorded Confirmed Acetaminophen Tab [Tylenol Tab] 1,000 mg PO Q6HR PRN 04/06/23 04/06/23 Previous Rx's Medication Instructions Recorded Ferrous Sulfate [Iron (65 MG 325 mg PO DAILY #30 tab 03/30/23 Elemental)] Ibuprofen [Motrin] 600 mg PO Q6HR PRN #30 tab 03/30/23 polyethylene glycoL 3350 [Miralax] 17 gm PO DAILY PRN #527 gm 03/30/23 Allergies Allergy/AdvReac Type Severity Reaction Status Date / Time No Known Allergies Allergy Verified 04/06/23 14:20 Review of Systems ROS Statement: Those systems with pertinent positive or pertinent negative responses have been documented in the HPI. ROS Other: All systems not noted in ROS Statement are negative. Past Medical History Past Medical History: No Reported History History of Any Multi-Drug Resistant Organisms: None Reported Past Surgical History: Ear Surgery Additional Past Surgical History / Comment(s): oral surgery Past Anesthesia/Blood Transfusion Reactions: No Reported Reaction Past Psychological History: ADD/ADHD, Anxiety Smoking Status: Current every day smoker Past Alcohol Use History: Occasional Past Drug Use History: None Reported - Past Family History Father Family Medical History: No Reported History General Exam Limitations: no limitations General appearance: alert Respiratory exam: Present: normal lung sounds bilaterally. Absent: respiratory distress, wheezes, rales, rhonchi, stridor Cardiovascular Exam: Present: regular rate, normal rhythm, normal heart sounds. Absent: systolic murmur, diastolic murmur, rubs, gallop, clicks GI/Abdominal exam: Present: soft, normal bowel sounds. Absent: distended, tenderness, guarding, rebound, rigid Neurological exam: Present: alert Psychiatric exam: Present: normal affect, normal mood Skin exam: Present: warm, dry, intact, normal color. Absent: rash Course Vital Signs 04/06/23 04/06/23 04/06/23 12:57 14:06 15:16 Temperature 99.2 F 98.1 F Pulse Rate 119 H 92 90 Respiratory 18 18 Rate Blood Pressure 124/82 126/80 O2 Sat by Pulse 100 99 Oximetry Medical Decision Making - Medical Decision Making Was pt. sent in by a medical professional or institution (, PA, CONVENTIONAL MACHINIST, urgent care, hospital, or skilled nursing...) When possible be specific @ -No Did you speak to anyone other than the patient for history (EMS, parent, family, police, friend...)? What history was obtained from this source @ -No Did you review nursing and triage notes (agree or disagree)? Why? @ -I reviewed and agree with nursing and triage notes Were old charts reviewed (outside hosp., previous admission, EMS record, old EKG, old radiological studies, urgent care reports/EKG's, skilled nursing records)? Report findings @ -No old charts were reviewed Differential Diagnosis (chest pain, altered mental status, abdominal pain women, abdominal pain men, vaginal bleeding, weakness, fever, dyspnea, syncope, headache, dizziness, GI bleed, back pain, seizure, CVA, palpatations, mental health)? @ -Differential Abdominal Pain Women: Appendicitis, Cholecystitis, diverticulosis, ischemic bowel, pancreatitis, hepatitis, UTI, gastroenteritis, AAA, incarcerated hernia, bowel obstruction, constipation, inflammatory bowel, hepatitis, peptic ulcer disease, splenic infarction, perforated viscus, vulvitis, ovarian torsion, PID, kidney stone, placenta abruption, this is not meant to be an all-inclusive list EKG interpreted by me (3pts min.). @ -As above X-rays interpreted by me (1pt min.). @ -None done CT interpreted by me (1pt min.). @ -None done U/S interpreted by me (1pt. min.). @ -None done What testing was considered but not performed or refused? (CT, X-rays, U/S, labs)? Why? @ -Patient declined labs What meds were considered but not given or refused? Why? @ -None Did you discuss the management of the patient with other professionals (professionals i.e. DrYovana, PA, CONVENTIONAL MACHINIST, lab, RT, psych nurse, public health social worker, panel coverer, teacher, environmental conservation officer, rn case manager)? Give summary @ -No Was smoking cessation discussed for >3mins.? @ -No Was critical care preformed (if so, how long)? @ -No Were there social determinants of health that impacted care today? How? (Homelessness, low income, unemployed, alcoholism, drug addiction, transportation, low edu. Level, literacy, decrease access to med. care, senior living, rehab)? @ -No Was there de-escalation of care discussed even if they declined (Discuss DNR or withdrawal of care, Hospice)? DNR status @ -No What co-morbidities impacted this encounter? (DM, HTN, Smoking, COPD, CAD, Cancer, CVA, ARF, Chemo, Hep., AIDS, mental health diagnosis, sleep apnea, morbid obesity)? @ -None Was patient admitted / discharged? Hospital course, mention meds given and route, prescriptions, significant lab abnormalities, going to OR and other pertinent info. @ -Discharged urinalysis is clean. It will be sent out for culture. Patient to follow-up with marine insurance claim examiner and PCP Undiagnosed new problem with uncertain prognosis? @ -No Drug Therapy requiring intensive monitoring for toxicity (Heparin, Nitro, Insulin, Cardizem)? @ -No Were any procedures done? @ -No Diagnosis/symptom? @ -suprapubic tenderness, back pain Acute, or Chronic, or Acute on Chronic? @ -acute Uncomplicated (without systemic symptoms) or Complicated (systemic symptoms)? @ -uncomplicated Side effects of treatment? @ -No] Exacerbation, Progression, or Severe Exacerbation? @ -[No] Poses a threat to life or bodily function? How? (Chest pain, USA, VT, pneumonia, PE, COPD, DKA, ARF, appy, cholecystitis, CVA, Diverticulitis, Homicidal, Suicidal, threat to staff... and all critical care pts) @ -No Dr. Torres is my attending - Lab Data Lab Results 04/06/23 04/06/23 Range/Units 13:07 13:07 Urine Color Colorless Urine Appearance Clear (Clear) Urine pH 7.0 (5.0-8.0) Ur Specific [place] 1.015 (1.001-1.035) Urine Protein Negative (Negative) Urine Glucose (UA) Negative (Negative) Urine Ketones Negative (Negative) Urine Blood Small (Negative) Urine Nitrite Negative (Negative) Urine Bilirubin 1+ H (Negative) Urine Urobilinogen <2.0 (<2.0) mg/dL Ur Leukocyte Esterase Small (Negative) Urine RBC <1 (0-5) /hpf Urine WBC 2 (0-5) /hpf Ur Squamous Epith Cells 1 (0-4) /hpf Urine HCG, Qual Detected (Not Detectd) Disposition Clinical Impression: Suprapubic tenderness, Back pain Disposition: HOME SELF-CARE Condition: Good Instructions (If sedation given, give patient instructions): Urinary Tract Infection in Women (ED) Additional Instructions: Please follow-up with your OB in 1-2 days. Return to the emergency department if you experience new, concerning, or worsening symptoms. Is patient prescribed a controlled substance at d/c from ED?: No Referrals: Kaylee Smith MD [Primary Care Provider] - 1-2 days
[2023-04-06 15:18] VITALS: BP 126/80; PULSE 90; TEMP 98.1
== END 2023-04-06 15:25 | disposition home or self-care (01) ==
LOC: EC 12:35
DX: O90.89 Other complications of the puerperium, not elsewhere classified (principal); M54.50 Low back pain, unspecified; R10.30 Lower abdominal pain, unspecified; O99.335 Smoking (tobacco) complicating the puerperium; F17.200 Nicotine dependence, unspecified, uncomplicated
CPT/HCPCS: 81001; 81025; 99284

== ENCOUNTER → 2023-04-13 | Outpatient (CLI) | payer OTHER ==
--- NOTE | 2023-04-13 11:09 | US ---
EXAMINATION TYPE: US venous doppler duplex LE RT DATE OF EXAM: 04/13/2023 10:21 AM COMPARISON: NONE CLINICAL INDICATION: Female, 22 years old with history of M79.661 PAIN IN RT LOWER LEG; Right leg chase n x 4 days, 2 weeks SIDE PERFORMED: Right TECHNIQUE: The lower extremity deep venous system is examined utilizing real time linear array sonog susan with graded compression, doppler sonography and color-flow sonography. VESSELS IMAGED: Common Femoral Vein Deep Femoral Vein Greater Saphenous Vein * Femoral Vein Popliteal Vein Small Saphenous Vein * Proximal Calf Veins (* superficial vessels) Right Leg: Appears negative for DVT IMPRESSION: No evidence for DVT within the right lower extremity imaged from the groin to the upper calf.
== END | disposition home or self-care (01) ==
LOC: RADUSWWP 10:03
PROVIDERS: ATTEND Internal Medicine
DX: M79.661 Pain in right lower leg (principal)

== ENCOUNTER → 2023-08-02 | Outpatient (CLI) | payer OTHER ==
--- NOTE | 2023-08-02 15:12 | USB ---
Reason for Exam: Clinical finding. Technique: Method: Whole Breast Handheld. Findings: The whole breast of both breasts, the axilla of both breasts and the retroareolar of both breasts were scanned. A complete US of all four quadrants of the bilateral breasts, axilla, and retro-areolar region were reviewed. No solid or cystic masses are identified. No axillary lymphadenopathy. Overall Assessment: Negative, BI-RAD 1 Management: Screening Mammogram of both breasts at age 39. Unless there is a clinical indication to start sooner. Also, further clinical management of patient's left breast pain. A clinical breast exam by your physician is recommended on an annual basis and results should be correlated with mammographic findings. This exam should not preclude additional follow-up of suspicious palpable abnormalities. Results were given to the patient verbally at the time of exam. Electronically signed and approved by: Jonah Khan M.D. Radiologist
--- NOTE | 2023-08-03 14:23 | CA ---
Transthoracic Echo Report Name: Breanna Lai Age: 23 Gender: F : 2000 Exam Date: 08/02/2023 15:19 Exam Location: [place] [facility] Ht (in): 66 Wt (lb): 240 Ordering Physician: Kaylee Smith MD Attending/Referring Phys: Kaylee Smith MD Slurry Man Mary Stein, [facility] Procedure CPT: Indications: N64.4 BR PAIN R00.2 PALPITATIONS Cardiac Hx: Technical Quality: Good Contrast 1: Total Dose (mL): Contrast 2: Total Dose (mL): MEASUREMENTS (Male / Female) Normal Values 2D ECHO LV Diastolic Diameter PLAX 4.6 cm 4.2 - 5.9 / 3.9 - 5.3 cm LV Systolic Diameter PLAX 4.2 cm IVS Diastolic Thickness 0.9 cm 0.6 - 1.0 / 0.6 - 0.9 cm LVPW Diastolic Thickness 0.8 cm 0.6 - 1.0 / 0.6 - 0.9 cm LV Relative Wall Thickness 0.4 RV Internal Dim ED PLAX 2.7 cm LA Volume 35.8 cm??? 18 - 58 / 22 - 52 cm??? LA Volume Index 15.6 cm???/m??? 16 - 28 cm???/m??? M-MODE Aortic Root Diameter MM 2.7 cm AV Cusp Separation MM 1.9 cm DOPPLER AV Peak Velocity 139.6 cm/s AV Peak Gradient 7.8 mmHg Mitral E Point Velocity 77.2 cm/s Mitral A Point Velocity 90.2 cm/s Mitral E to A Ratio 0.9 MV Deceleration Time 134.0 ms MV E' Velocity 8.7 cm/s Mitral E to MV E' Ratio 8.8 FINDINGS Left Ventricle Left ventricular ejection fraction is estimated at 55-60 %. Left ventricular cavity size normal. Left ventricular wall thickness normal. Right Ventricle Normal right ventricular size. Unable to estimate the right ventricular systolic pressure. Right Atrium Normal right atrial size. Left Atrium Normal left atrial size. Mitral Valve Structurally normal mitral valve. No mitral stenosis, regurgitation or prolapse. Aortic Valve Trileaflet aortic valve. No aortic valve stenosis or regurgitation. Tricuspid Valve Structurally normal tricuspid valve. No tricuspid stenosis, regurgitation or prolapse. Pulmonic Valve Structurally normal pulmonic valve. Pericardium No pericardial effusion. Aorta Normal size aortic root and proximal ascending aorta. CONCLUSIONS Normal LV systolic function No pericardial effusion Previewed by: Dr. Brayan Moreno MD (Electronically Signed) Final Date: 03 August 2023 14:22
== END | disposition home or self-care (01) ==
LOC: RADECHMAIN 14:11
PROVIDERS: ATTEND Internal Medicine
DX: N64.4 Mastodynia (principal); R00.2 Palpitations
CPT/HCPCS: 93306

== ENCOUNTER → 2023-11-17 | Outpatient (CLI) | payer OTHER ==
--- NOTE | 2023-11-17 13:36 | XR ---
EXAMINATION TYPE: XR lumbar spine with bend/flex, 5 views DATE OF EXAM: 11/17/2023 Comparison: None Clinical History: 23-year-old female M51.9 Findings: 5 lumbar type vertebral bodies. Vertebral body heights and disc interspaces are preserved. There is m ild facet degenerative spurring in the lower lumbar spine. Alignment is maintained. No dynamic sublux ation with flexion or extension. Impression: No spondylolisthesis or dynamic subluxation with flexion-extension. Mild facet degenerative spurring in the lower lumbar spine. No vertebral compression collapse.
== END | disposition home or self-care (01) ==
LOC: RADXRMAIN 11:41
PROVIDERS: ATTEND Internal Medicine
DX: M47.816 Spondylosis without myelopathy or radiculopathy, lumbar region (principal); M51.87 Other intervertebral disc disorders, lumbosacral region
CPT/HCPCS: 72114

== ENCOUNTER → 2024-05-16 | Outpatient (CLI) | payer OTHER ==
--- NOTE | 2024-05-16 08:11 | US ---
EXAMINATION TYPE: US gallbladder DATE OF EXAM: 05/16/2024 COMPARISON: NONE CLINICAL INDICATION: Female, 23 years old with history of R10.9 UNSPECIFIED ABDOMINAL PAIN; RUQ pain x 1 week TECHNIQUE: Multiple sonographic images of the right upper quadrant are obtained. FINDINGS: EXAM MEASUREMENTS: Liver Length: 16.5 cm Gallbladder Wall: 0.27 cm CBD: 0.53 cm Right Kidney: 9.8 x 4.9 x 4.3 cm PREFORMING MACHINE OPERATOR NOTES: Pancreas: Obscured by bowel gas Liver: heterogeneous Gallbladder: wnl Evidence for sonographic Rock's sign: No CBD: wnl Right Kidney: wnl IMPRESSION: 1. No evidence of gallstones. 2. Nonspecific pattern to the liver can be associated with underlying hepatocellular disease or hepat ic steatosis.
== END | disposition home or self-care (01) ==
LOC: RADUSWWP 07:23
PROVIDERS: ATTEND Internal Medicine
DX: K76.89 Other specified diseases of liver (principal)
CPT/HCPCS: 76705

== ENCOUNTER → 2024-07-18 | Outpatient (CLI) | payer OTHER ==
--- NOTE | 2024-07-18 14:39 | XR ---
EXAMINATION TYPE: XR abdomen 2V DATE OF EXAM: 07/18/2024 COMPARISON: NONE CLINICAL INDICATION: Female, 24 years old with history of R10.9 UNSPECIFIED ABDOMINAL PAIN; TECHNIQUE: XR abdomen 2V views of the abdomen. FINDINGS: The osseous structures are intact. The bowel gas pattern is nonspecific. Moderate to severe retained stool burden. Calcifications in the pelvis are most likely related to phleboliths. Lung bases clear. No suspicious calcifications overlying the renal outline. IMPRESSION: 1. Correlate for constipation. [facility], , 07/18/2024 2:36 PM
== END | disposition home or self-care (01) ==
LOC: RADXRMAIN 13:43
PROVIDERS: ATTEND Internal Medicine
DX: K59.00 Constipation, unspecified (principal)
CPT/HCPCS: 74019